=== PATIENT | female | born 1965 | race Caucasian/White ===

== ENCOUNTER → 2016-12-25 | Outpatient (CLI) | payer OTHER ==
[2015-11-19 03:55] VITALS: BP 134/84
--- NOTE | 2016-12-25 11:56 | US ---
HISTORY: Nausea and abdominal pain. Study: Right upper quadrant abdominal ultrasound Comparison: None. Technique: Multiple becerra scale and color flow Doppler images of the right upper quadrant were obtaine d. Findings: The liver is enlarged and homogeneously echogenic in appearance; please correlate with LFTs. No foca l intraparenchymal mass or intrahepatic biliary ductal dilatation can be observed. The gallbladder f ails to demonstrate evidence for cholelithiasis or layering sludge. The common bile duct is unremark able measuring 4 mm. No pericholecystic fluid or gallbladder wall thickening can be observed. The CB D measures within normal limits. The right kidney appears normal in size without focal parenchymal ma ss or nephrolithiasis. The right kidney measurers 7 x 8 x 5 centimeters. No hydronephrosis or perir enal fluid can be observed. The pancreatic head and body are unremarkable. The pancreatic tail is l argely obscured by overlying bowel gas. IMPRESSION: 1. Liver is enlarged and homogeneously echogenic in appearance which can be seen with fatty infiltra tion. Please correlate with liver function tests for assurance. 2. No other abdominal or gallbladder sonographic abnormalities are seen. Reported By:
== END | disposition home or self-care (01) | DRG 392 ==
LOC: RAD 09:36
PROVIDERS: ATTEND Internal Medicine
DX: R10.11 Right upper quadrant pain (principal); R11.0 Nausea; K76.0 Fatty (change of) liver, not elsewhere classified
CPT/HCPCS: 76705

== ENCOUNTER → 2017-01-01 | Outpatient (CLI) | payer OTHER ==
[2015-11-19 03:55] VITALS: BP 134/84
--- NOTE | 2017-01-01 12:19 | NM ---
Indication: Pain . Exam: Nuclear medicine hepatobiliary scan. Technique: The patient was injected with 5.4 mCi of Tc 9 M Choletec IV and dynamic and delayed images were obtained findings: There is physiologic uptake throughout the liver. No focal defects are seen. There is uptake in the gallbladder and small bowel within 60 min. The patient was then given 8 oz of the Ensure plus orally and a gallbladder ejection fraction was calculated at-126% in keeping with pa radoxical filling of the gallbladder. Impression: Normal liver and bile ducts with prompt normal visualization of the gallbladder. There is paradoxical filling of the gallbladder after the administration of Ensure orally which is suggestive of biliary dyskinesia. Reported By:
== END ==
LOC: RAD 09:10
PROVIDERS: ATTEND Internal Medicine
DX: R10.11 Right upper quadrant pain (principal); R11.0 Nausea
CPT/HCPCS: 78227

== ENCOUNTER → 2017-07-27 | Outpatient (CLI) | payer OTHER ==
[2015-11-19 03:55] VITALS: BP 134/84
[2017-07-27 14:32] LABS: STOOL FOR WBC NEGATIVE (NEGATIVE)
[2017-07-27 15:05] LABS: CRYPTOSPORIDIUM PARVUM ANTIGEN NEGATIVE (NEGATIVE); GIARDIA LAMBLIA ANTIGEN NEGATIVE (NEGATIVE)
== END ==
LOC: LAB 13:54
PROVIDERS: ATTEND Internal Medicine
DX: R19.7 Diarrhea, unspecified (principal)
CPT/HCPCS: 82274; 83630; 87045; 87328; 87329; 87336; 87427; 87449; 87493

== ENCOUNTER 2020-10-03 10:38 | Inpatient (IN) ==
[2020-10-03] MEDS ORDERED: NS 500 ML IV 500 ML IV ONE (12:51)
[2020-10-03] MEDS ORDERED: TYLENOL 325 MG TAB PO PRN (12:51)
[2020-10-03] MEDS ORDERED: BENADRYL INJ 50 MG VIAL IVP PRN (12:51)
[2020-10-03 13:25] LABS: BASOPHILS # (AUTO) 0.1 X10^3/uL (0.0-0.1); BASOPHILS % (AUTO) 1.2 % (0.2-1.0); EOSINOPHILS # (AUTO) 0.1 x10^3/uL (0.0-0.2); EOSINOPHILS % (AUTO) 0.7 % (0.9-2.9); LYMPHOCYTES % (AUTO) 12.6 % (21.0-51.0); MEAN CORPUSCULAR HEMOGLOBIN 16.6 pg (27.0-34.0); MEAN CORPUSCULAR HGB CONC 29.7 g/dL (33.0-35.0); MEAN CORPUSCULAR VOLUME 55.9 fL (80.0-100.0); MEAN PLATELET VOLUME 8.3 fL (7.4-11.0); MONOCYTES # (AUTO) 0.7 x10^3/uL (0.3-0.8); MONOCYTES % (AUTO) 7.9 % (0.0-13.0); NEUTROPHILS # (AUTO) 6.5 x10^3/uL (2.2-4.8); NEUTROPHILS % (AUTO) 77.6 % (42.0-75.0); PLATELET COUNT 245 X10^3/uL (150.0-450.0); RED BLOOD COUNT 3.45 X10^6/uL (3.5-5.4); RED CELL DISTRIBUTION WIDTH 20.9 % (11.6-16.5); WHITE BLOOD COUNT 8.4 X10^3/uL (3.6-10.0)
[2020-10-03 13:31] LABS: ALANINE AMINOTRANSFERASE 34 Units/L (12-78); ALBUMIN 3.4 g/dL (3.4-5.0); ALKALINE PHOSPHATASE 183 Units/L (46-116); ASPARTATE AMINO TRANSFERASE 45 Units/L (15-37); BLOOD UREA NITROGEN 21 mg/dL (7-18); CALCIUM 9.4 mg/dL (8.5-10.1); CARBON DIOXIDE 26.5 mmol/L (21-32); CHLORIDE 103 mmol/L (98-107); CREATININE 1.69 mg/dL (0.55-1.02); HEMATOCRIT 19.3 % (36.0-47.0); HEMOGLOBIN 5.7 g/dL (12.0-16.0); SODIUM 141 mmol/L (136-145); TOTAL PROTEIN 6.9 g/dL (6.4-8.2); eGFR NON BLACK RACES 33 (>60)
[2020-10-03 13:41] VITALS: BMI 34.9
[2020-10-03 13:43] LABS: PLATELET MORPHOLOGY COMMENT NORMAL (NORMAL)
[2020-10-03 13:44] LABS: ANISOCYTOSIS 1+; MICROCYTOSIS 2+; TEAR DROP CELLS SLIGHT
[2020-10-03 13:45] LABS: OVALOCYTES SLIGHT
[2020-10-03] MEDS: NS 1000 ML 1,000 ML IV SCH (13:45)
[2020-10-03] MEDS: PROTONIX INJ 40 MG VIAL IVP SCH ×2 (13:47→21:15)
[2020-10-03] MEDS: PEPCID 20 MG IV PREMIX* 20 MG/50 ML BAG IV SCH ×2 (13:47→21:20)
[2020-10-03] MEDS: NS 500 ML IV 500 ML IV PRN (14:32)
--- NOTE | 2020-10-03 19:39 | DR.CONSULT ---
Consult - Consultation for Day of: Date: 10/03/20 - Chief Complaint Chief Complaint: Patient referred for anemia. Patient with complaints of dyspepsia and nausea. - History of Present Illness History of Present Illness: Patient is a 54 yo female who was referred for anemia. Patient with complaints of dyspepsia, nausea and diarrhea. Patient unsure of melena or hematochezia as she does not look at her stools. Denies dysphagia, vomiting, abdominal pain, constipation. Last colon was within the last year with Dr. Echeverria with polyps was told will need repeat in 3 years. No previous EGD noted. Patient noted with history of fatty liver. Admits to drinking alcohol daily. Hgb 5.8, Hct 19.3, Plt 295, BUN 21, Creatinine 1.69, T. Bili 0.5 AST 45, ALT 35, ALP 183. - Past Medical History Past Medical History: Anxiety, Dyslipidemia, Hypertension, Hypothyroidism Additional Medical History: heart murmur - Past Surgical History Surgical History: Cholecystectomy, Hysterectomy - Family History Family Medical History: Diabetes Mellitus, MS, Coronary Artery Disease, Hypertension - Social History Does patient currently use any type of tobacco product: No Have you used tobacco products in the last 12 months: No Type of Tobacco Use: None Does any household member use tobacco: No Alcohol Use: DAILY Drug Use: None - Medications Home Medications: MS Sulfur [Sulfur] Allergy (Verified 11/18/15 16:30) CONTINUE taking the following medications amlodipine 5 mg PO BID 10/03/20 [History] brexpiprazole [Rexulti] 2 mg PO DAILY 10/03/20 [History] bupropion HCl 300 mg PO DAILY 10/03/20 [History] ergocalciferol (vitamin D2) [Vitamin D2] 1 mcg PO 2XW 10/03/20 [History] esomeprazole magnesium 40 mg PO BID 10/03/20 [History] hydrocodone-acetaminophen 1 tab PO TID PRN 10/03/20 [History] levothyroxine 75 mcg PO DAILY 10/03/20 [History] lurasidone [Latuda] 40 mg PO DAILY 10/03/20 [History] meloxicam 15 mg PO DAILY 10/03/20 [History] metoprolol tartrate 25 mg PO BID 10/03/20 [History] rosuvastatin 5 mg PO HS 06/17/21 [History] sertraline 100 mg PO DAILY 10/03/20 [History] temazepam 30 mg PO HS 10/03/20 [History] trazodone 150 mg PO HS 10/03/20 [History] triamterene-hydrochlorothiazid 1 tab PO DAILY 10/03/20 [History] - Review of Systems Gastrointestinal: See HPI, Nausea, Diarrhea, Other (dyspepsia). denies: Vomiting, Abdominal Pain, Constipation, Melena, Hematochezia - Physical Exam Vital Signs: Temperature 98.1 F Pulse Rate 68 Respiratory Rate 19 Blood Pressure [Right Arm] 134/84 Blood Pressure 113/57 O2 Sat by Pulse Oximetry 100 Oriented: Normal Eyes: Normal Ear: Normal Nose: Normal Throat: Normal Respiratory: Clear Throughout Cardiovascular: Normal Auscultation: Bowel Sounds: Normal Palpation: Normal, Other (no distention). negative: Spleen Enlarged, Liver Enlarged, Mass Pulsatile Tenderness: Normal (non tender) Skin: Normal Musculoskeletal: Normal Psychiatric: Normal Mood Description: Calm, Appropriate Affect: Normal Speech Pattern: Clear, Appropriate - Plan Plan: Assessment. 1. Anemia r/o GI loss. 2. Abnormal LFTs likely secondary to alcohol use r/o other etiologies. Plan. 1. Monitor Hgb, Transfuse as needed, EGD in am, Protonix IV. 2. Abnormal LFT Panel, Hepatitis Profile, Liver US, Monitor LFTs. Plan reviewed with Dr. Smith - Allergies Allergies/Adverse Reactions: Allergies Allergy/AdvReac Type Severity Reaction Status Date / Time MS Sulfur [Sulfur] Allergy Verified 11/18/15 16:30
[2020-10-03 20:47] LABS: IRON < 5 ug/dL (50-175)
[2020-10-03 23:55] LABS: HEMATOCRIT 22.7 % (36.0-47.0); HEMOGLOBIN 7.3 g/dL (12.0-16.0)
[2020-10-04 05:54] LABS: ALANINE AMINOTRANSFERASE 45 Units/L (12-78); ALKALINE PHOSPHATASE 215 Units/L (46-116); ASPARTATE AMINO TRANSFERASE 91 Units/L (15-37); BLOOD UREA NITROGEN 23 mg/dL (7-18); CALCIUM 8.8 mg/dL (8.5-10.1); CARBON DIOXIDE 22.4 mmol/L (21-32); CHLORIDE 105 mmol/L (98-107); COR CA(FOR HYPOALB) 9.6 mg/dL (8.5-10.1); CREATININE 1.66 mg/dL (0.55-1.02); SODIUM 142 mmol/L (136-145); TOTAL PROTEIN 6.2 g/dL (6.4-8.2); eGFR NON BLACK RACES 34 (>60)
[2020-10-04 06:00] LABS: BASOPHILS # (AUTO) 0.1 X10^3/uL (0.0-0.1); BASOPHILS % (AUTO) 1.3 % (0.2-1.0); EOSINOPHILS # (AUTO) 0.1 x10^3/uL (0.0-0.2); EOSINOPHILS % (AUTO) 1.2 % (0.9-2.9); HEMATOCRIT 22.6 % (36.0-47.0); HEMOGLOBIN 7.1 g/dL (12.0-16.0); LYMPHOCYTES # (AUTO) 1.3 X10^3/uL (1.3-2.9); MEAN CORPUSCULAR HEMOGLOBIN 19.6 pg (27.0-34.0); MEAN CORPUSCULAR HGB CONC 31.5 g/dL (33.0-35.0); MEAN CORPUSCULAR VOLUME 62.4 fL (80.0-100.0); MEAN PLATELET VOLUME 8.3 fL (7.4-11.0); MONOCYTES # (AUTO) 0.8 x10^3/uL (0.3-0.8); MONOCYTES % (AUTO) 8.7 % (0.0-13.0); NEUTROPHILS # (AUTO) 6.4 x10^3/uL (2.2-4.8); NEUTROPHILS % (AUTO) 73.8 % (42.0-75.0); PLATELET COUNT 214 X10^3/uL (150.0-450.0); RED BLOOD COUNT 3.62 X10^6/uL (3.5-5.4); RED CELL DISTRIBUTION WIDTH 29.8 % (11.6-16.5); WHITE BLOOD COUNT 8.7 X10^3/uL (3.6-10.0)
[2020-10-04] MEDS: NS 1000 ML 1,000 ML IV SCH ×2 (06:11→15:35)
[2020-10-04 07:00] LABS: ANISOCYTOSIS 3+; HYPOCHROMASIA 1+; PLATELET MORPHOLOGY COMMENT NORMAL (NORMAL)
[2020-10-04 07:01] LABS: MICROCYTOSIS 2+
[2020-10-04] MEDS: PEPCID 20 MG IV PREMIX* 20 MG/50 ML BAG IV SCH ×2 (08:03→21:15)
[2020-10-04] MEDS: PROTONIX INJ 40 MG VIAL IVP SCH (08:03)
--- NOTE | 2020-10-04 10:10 | US ---
[id number] female with elevated liver function testSTUDYLimited abdominal ultrasoundCOMPARISONNoneFINDINGSFatty changes are identified in the liver. However the liver is robert l size with no focal intrahepatic abnormality seen. Portal vein is patent with normal hepatopetal huber w.Patient is status post cholecystectomy. Common bile duct measures 7 millimeters in diameter.IMPRESS ION1. Fatty changes are identified in the liver.2. Status post cholecystectomy.Electronically signed by: JACEK RANDLE (Oct 04, 2020 10:08:31)
--- NOTE | 2020-10-04 13:18 | PCM.PROG ---
Progress Note Progress Note for Day of Date of Exam: 10/04/20 Subjective Subjective: Patient seen at bedside, no acute events overnight. Patient was seen by GI yesterday and is supposed to have EGD done today. She has been NPO since midnight. She denies any N/V/D or abdominal pain. She still reports generalized weakness. She was admitted with severe symptomatic anemia with Hgb 5.7. She has received 2 units of PRBCs so far. GI has ordered liver U/S and other tests including hepatitis panel. Labs: Hgb 7.1 Hct 22.6 K: 3.5 Cr: 1.66 MCV 62 Iron < 5 AST 91 Alk Phos 215 Hep panel pending Liver U/S pending MRI orbits/frontal: right maxillary sinus disease. Plan: keep NPO for now, EGD today, follow up on results and GI recommendation. Continue hydration and IV Protonix. Follow up on pending labs and U/S. Monitor H/H, repeat this afternoon. Replace iron. Replace electrolytes as per protocol. Monitor AM labs and imaging. Time spent for clinical assessment, reviewing labs and imaging, physical exam, decision making, management and documentation greater than 75 mins. Past Medical Family Social History Past Med/Fam/Surg Hx: No changes since H&P Allergies: Allergies Sulfa (Sulfonamide Antibiotics) Allergy (Verified 10/04/20 05:13) Review of Systems ROS: No change since H&P Vital Signs and I&O's Vital Signs: Temperature 98.4 F Pulse Rate 59 Respiratory Rate 14 Blood Pressure [Right Arm] 134/84 Blood Pressure 117/63 O2 Sat by Pulse Oximetry 100 Intake and Output: Intake & Output 10/01/20 10/02/20 10/03/20 10/04/20 23:59 23:59 23:59 23:59 Intake Total 1321 / 1321 1072 / 1072 Output Total 974 / 974 Balance 347 / 347 1072 / 1072 Physical Exam Oriented: Normal Eyes: Normal Ear: Normal Nose: Normal Throat: Normal Respiratory: Normal Cardiovascular: Normal Auscultation: Bowel Sounds: Normal Tenderness: Normal (non tender) Skin: Normal Musculoskeletal: Normal Psychiatric: Normal Mood Description: Calm and Appropriate Affect: Normal Speech Pattern: Clear and Appropriate Laboratory and Diagnostics Result Diagrams: 10/04/20 05:20 10/04/20 05:20 Labs: Laboratory WBC 8.7 X10^3/uL (3.6-10.0) 10/04/20 05:20 RBC 3.62 X10^6/uL (3.5-5.4) 10/04/20 05:20 Hgb 7.1 g/dL (12.0-16.0) L 10/04/20 05:20 Hct 22.6 % (36.0-47.0) L 10/04/20 05:20 MCV 62.4 fL (80.0-100.0) L 10/04/20 05:20 MCH 19.6 pg (27.0-34.0) L 10/04/20 05:20 MCHC 31.5 g/dL (33.0-35.0) L 10/04/20 05:20 RDW 29.8 % (11.6-16.5) H 10/04/20 05:20 Plt Count 214 X10^3/uL (150.0-450.0) 10/04/20 05:20 Plt Count Comment Adequate (ADEQUATE) 10/04/20 05:20 MPV 8.3 fL (7.4-11.0) 10/04/20 05:20 Neut % (Auto) 73.8 % (42.0-75.0) 10/04/20 05:20 Lymph % (Auto) 15.0 % (21.0-51.0) L 10/04/20 05:20 Powell % (Auto) 8.7 % (0.0-13.0) 10/04/20 05:20 Eos % (Auto) 1.2 % (0.9-2.9) 10/04/20 05:20 Baso % (Auto) 1.3 % (0.2-1.0) H 10/04/20 05:20 Neut # (Auto) 6.4 x10^3/uL (2.2-4.8) H 10/04/20 05:20 Lymph # (Auto) 1.3 X10^3/uL (1.3-2.9) 10/04/20 05:20 Powell # (Auto) 0.8 x10^3/uL (0.3-0.8) 10/04/20 05:20 Eos # (Auto) 0.1 x10^3/uL (0.0-0.2) 10/04/20 05:20 Baso # (Auto) 0.1 X10^3/uL (0.0-0.1) 10/04/20 05:20 Absolute Nucleated RBC 0.1 /100WBC 10/04/20 05:20 Plt Morphology Comment Normal (NORMAL) 10/04/20 05:20 RBC Morphology Abnormal (NORMAL) A 10/04/20 05:20 Hypochromasia 1+ A 10/04/20 05:20 Anisocytosis 3+ A 10/04/20 05:20 Microcytosis 2+ A 10/04/20 05:20 Tear Drop Cells Slight A 10/03/20 13:04 Ovalocytes Slight A 10/03/20 13:04 Sodium 142 mmol/L (136-145) 10/04/20 05:20 Corrected Sodium TNP 10/04/20 05:20 Potassium 3.5 mmol/L (3.5-5.1) 10/04/20 05:20 Chloride 105 mmol/L (98-107) 10/04/20 05:20 Carbon Dioxide 22.4 mmol/L (21-32) 10/04/20 05:20 BUN 23 mg/dL (7-18) H 10/04/20 05:20 Creatinine 1.66 mg/dL (0.55-1.02) H 10/04/20 05:20 Est GFR (MDRD) Af Amer 41 (>60) L 10/04/20 05:20 Est GFR (MDRD) Non-Af 34 (>60) L 10/04/20 05:20 Glucose 85 mg/dL (65-99) 10/04/20 05:20 Calcium 8.8 mg/dL (8.5-10.1) 10/04/20 05:20 Corrected Calcium 9.6 mg/dL (8.5-10.1) 10/04/20 05:20 Iron < 5 ug/dL (50-175) L 10/03/20 13:04 Transferrin 394 mg/dL (202-364) H 10/03/20 13:04 Ferritin 10 ng/mL (8-252) 10/03/20 13:04 Total Bilirubin 1.70 mg/dL (0.2-1.0) H 10/04/20 05:20 AST 91 Units/L (15-37) H 10/04/20 05:20 ALT 45 Units/L (12-78) 10/04/20 05:20 Alkaline Phosphatase 215 Units/L (46-116) H 10/04/20 05:20 Total Protein 6.2 g/dL (6.4-8.2) L 10/04/20 05:20 Albumin 3.0 g/dL (3.4-5.0) L 10/04/20 05:20 Globulin 3.2 g/dL (2.5-4.5) 10/04/20 05:20 Albumin/Globulin Ratio 0.9 Ratio (1.1-2.1) L 10/04/20 05:20 Stool Description 100g yellowish guevara 10/03/20 19:38 Stl Occult Blood (IFOB) Positive (NEGATIVE) A 10/03/20 19:38 Blood Type B POSITIVE 10/03/20 13:04 Antibody Screen Negative 10/03/20 13:04 Crossmatch See Detail 10/03/20 13:04 Plan (1) Symptomatic anemia: Status: Acute (2) DENEEN (iron deficiency anemia): Status: Acute Qualifiers: Iron deficiency anemia type: unspecified iron deficiency Qualified Code(s): D50.9 - Iron deficiency anemia, unspecified (3) GI bleed: Status: Acute Qualifiers: GI bleed type/associated pathology: melena Qualified Code(s): K92.1 - Melena (4) Transaminitis: Status: Acute (5) Acute kidney injury: Status: Acute (6) HTN (hypertension): Status: Acute Qualifiers: Hypertension type: essential hypertension Qualified Code(s): I10 - Essential (primary) hypertension (7) Hypothyroidism: Status: Acute Qualifiers: Hypothyroidism type: unspecified Qualified Code(s): E03.9 - Hypothyroidism, unspecified (8) HLD (hyperlipidemia): Status: Acute Qualifiers: Hyperlipidemia type: unspecified Qualified Code(s): E78.5 - Hyperlipidemia, unspecified
[2020-10-04] MEDS ORDERED: ZOLOFT PO ONE (13:30)
[2020-10-04] MEDS ORDERED: WELLBUTRIN XL 150 MG (DAILY) PO ONE (13:30)
[2020-10-04] MEDS ORDERED: DIPRIVAN VIAL 20 ML ONE (14:30)
[2020-10-04] MEDS ORDERED: XYLOCAINE 2 % (PLAIN) ONE (14:30)
[2020-10-04] MEDS ORDERED: ZOLOFT ONE (15:29)
[2020-10-04 17:31] LABS: HEMATOCRIT 23.7 % (36.0-47.0); HEMOGLOBIN 7.4 g/dL (12.0-16.0)
[2020-10-04] MEDS: FERROUS GLUCONATE PO SCH (17:39)
[2020-10-04] MEDS: NS 500 ML IV 500 ML IV PRN (17:39)
[2020-10-04] MEDS ORDERED: NORCO 10/325 TAB ONE (18:20)
[2020-10-04] MEDS ORDERED: ATIVAN INJ 2 MG VIAL IVP PRN (19:30)
[2020-10-04] MEDS ORDERED: PATIENT'S HOME MEDICATION PO SCH ×4 (21:00)
[2020-10-04] MEDS: PROTONIX TAB 40 MG PO SCH (21:15)
[2020-10-04] MEDS: PATIENT'S HOME MEDICATION PO SCH ×3 (21:15)
[2020-10-04] MEDS ORDERED: NORCO 10/325 TAB PO PRN (22:00)
[2020-10-05 01:53] LABS: BASOPHILS # (AUTO) 0.1 X10^3/uL (0.0-0.1); BASOPHILS % (AUTO) 1.5 % (0.2-1.0); EOSINOPHILS # (AUTO) 0.1 x10^3/uL (0.0-0.2); EOSINOPHILS % (AUTO) 1.6 % (0.9-2.9); HEMATOCRIT 27.8 % (36.0-47.0); HEMOGLOBIN 8.9 g/dL (12.0-16.0); LYMPHOCYTES # (AUTO) 1.5 X10^3/uL (1.3-2.9); LYMPHOCYTES % (AUTO) 19.4 % (21.0-51.0); MEAN CORPUSCULAR HGB CONC 31.9 g/dL (33.0-35.0); MEAN PLATELET VOLUME 8.4 fL (7.4-11.0); MONOCYTES # (AUTO) 0.8 x10^3/uL (0.3-0.8); MONOCYTES % (AUTO) 10.3 % (0.0-13.0); NEUTROPHILS # (AUTO) 5.2 x10^3/uL (2.2-4.8); NEUTROPHILS % (AUTO) 67.2 % (42.0-75.0); PLATELET COUNT 211 X10^3/uL (150.0-450.0); RED BLOOD COUNT 4.21 X10^6/uL (3.5-5.4); RED CELL DISTRIBUTION WIDTH 30.6 % (11.6-16.5); WHITE BLOOD COUNT 7.8 X10^3/uL (3.6-10.0)
[2020-10-05 02:06] LABS: ALANINE AMINOTRANSFERASE 37 Units/L (12-78); ALBUMIN 3.1 g/dL (3.4-5.0); ALKALINE PHOSPHATASE 220 Units/L (46-116); ASPARTATE AMINO TRANSFERASE 35 Units/L (15-37); BLOOD UREA NITROGEN 18 mg/dL (7-18); CALCIUM 8.7 mg/dL (8.5-10.1); CHLORIDE 107 mmol/L (98-107); COR CA(FOR HYPOALB) 9.4 mg/dL (8.5-10.1); CREATININE 1.61 mg/dL (0.55-1.02); SODIUM 144 mmol/L (136-145); eGFR NON BLACK RACES 35 (>60)
[2020-10-05 02:09] LABS: ANISOCYTOSIS 3+; HYPOCHROMASIA SLIGHT; MICROCYTOSIS 1+; OVALOCYTES PRESENT; PLATELET MORPHOLOGY COMMENT NORMAL (NORMAL)
[2020-10-05] MEDS: NS 1000 ML 1,000 ML IV SCH (05:17)
[2020-10-05] MEDS: FERROUS GLUCONATE PO SCH (08:40)
[2020-10-05] MEDS: PATIENT'S HOME MEDICATION PO SCH ×3 (08:41)
[2020-10-05] MEDS: PROTONIX TAB 40 MG PO SCH (08:42)
[2020-10-05] MEDS: PEPCID 20 MG IV PREMIX* 20 MG/50 ML BAG IV SCH (08:42)
[2020-10-05] MEDS ORDERED: PATIENT'S HOME MEDICATION PO SCH ×5 (09:00)
[2020-10-05] MEDS ORDERED: INFeD or DEXFERRUM 25 MG in NS 100 ML IV 100 ML IV ONE (11:00)
[2020-10-05] MEDS ORDERED: INFeD or DEXFERRUM 975 MG in NS 500 ML IV 500 ML IV ONE (11:00)
--- NOTE | 2020-10-05 11:43 | W.DIS.FURT ---
Summary of Discharge Discharge Summary of Date Date of Exam: 10/05/20 Admission Date Date of Admission: 10/03/20 Admission Diagnosis Hospital Course: Ms. Marr is a 54y/o female with a PMH of anemia, HTN, chronic ETOH use, anxiety, HLD, GERD and DENEEN presented with worsening nausea, abdominal pain and indigestion. On admission, she was found to be severely anemia with a Hgb of 5.8, BUN 21 and Creatinine 1.69, abnormal LFTs. She denies active bleeding. She was started on IV hydration, IV protonix. Patient also received a total of 4 units of PRBCs during this admission She had colonoscopy last year with Dr. Echeverria with polyps and recommended repeat in 3 years. No EGD noted. GI was consulted and ordered more tests to rule out cause of anemia along with hepatitis panel and Liver U/S. EGD was done which showed Distal esophagitis. M ultiple small non-bleeding antral gastric nodules with tiny ulcerations on top. Patient's Hgb remained stable above 8. Patient's iron was below 5 and she received one iron infusion prior to discharge. She was also started on oral iron supplements for outpatient. GI recommended Protonix 40 mg BID and will follow up outpatient to follow up on pending labs and other work up for anemia including capsule endoscopy and repeat colonoscopy. Patient will follow up with GI and PCP as scheduled. Vital Signs: Vital Signs (72 hours) 10/03/20 13:00 10/03/20 14:00 10/03/20 14:33 Temperature 98.2 F Pulse Rate 74 64 Respiratory Rate 18 19 18 Blood Pressure 109/64 108/55 O2 Sat by Pulse Oximetry 97 98 10/03/20 15:00 10/03/20 15:33 10/03/20 16:00 Temperature 98.1 F Pulse Rate 62 68 Respiratory Rate 18 19 19 Blood Pressure 99/60 113/57 O2 Sat by Pulse Oximetry 94 L 100 10/03/20 20:00 10/04/20 00:00 10/04/20 00:02 Temperature 98.2 F Pulse Rate 65 60 59 L Respiratory Rate 17 15 17 Blood Pressure 121/56 108/56 O2 Sat by Pulse Oximetry 98 99 96 10/04/20 00:15 10/04/20 00:30 10/04/20 00:45 Temperature Pulse Rate 60 62 62 Respiratory Rate 16 17 17 Blood Pressure O2 Sat by Pulse Oximetry 94 L 97 97 10/04/20 01:00 10/04/20 01:15 10/04/20 01:30 Temperature Pulse Rate 60 61 61 Respiratory Rate 15 16 17 Blood Pressure 100/54 O2 Sat by Pulse Oximetry 97 97 97 10/04/20 01:45 10/04/20 01:59 10/04/20 02:00 Temperature Pulse Rate 61 61 Respiratory Rate 18 17 Blood Pressure 97/54 O2 Sat by Pulse Oximetry 97 95 10/04/20 02:02 10/04/20 02:16 10/04/20 02:30 Temperature Pulse Rate 61 60 59 L Respiratory Rate 16 18 17 Blood Pressure O2 Sat by Pulse Oximetry 95 95 96 10/04/20 02:45 10/04/20 03:00 10/04/20 03:15 Temperature Pulse Rate 59 L 59 L 58 L Respiratory Rate 16 11 L 16 Blood Pressure 107/61 O2 Sat by Pulse Oximetry 95 96 97 10/04/20 03:30 10/04/20 03:45 10/04/20 04:00 Temperature 97.8 F Pulse Rate 59 L 59 L 58 L Respiratory Rate 16 16 12 Blood Pressure 109/56 O2 Sat by Pulse Oximetry 97 96 96 10/04/20 04:15 10/04/20 04:30 10/04/20 04:45 Temperature Pulse Rate 57 L 62 58 L Respiratory Rate 13 17 15 Blood Pressure O2 Sat by Pulse Oximetry 98 97 96 10/04/20 05:00 10/04/20 05:15 10/04/20 05:31 Temperature Pulse Rate 58 L 59 L 72 Respiratory Rate 11 L 13 Blood Pressure 110/59 O2 Sat by Pulse Oximetry 97 96 96 10/04/20 05:45 10/04/20 06:00 10/04/20 06:15 Temperature 97.8 F Pulse Rate 78 128 H 62 Respiratory Rate 18 27 H Blood Pressure 105/59 O2 Sat by Pulse Oximetry 98 96 99 10/04/20 06:30 10/04/20 06:45 10/04/20 07:00 Temperature Pulse Rate 61 61 60 Respiratory Rate 14 17 15 Blood Pressure 98/60 O2 Sat by Pulse Oximetry 99 98 95 10/04/20 07:15 10/04/20 07:30 10/04/20 07:45 Temperature Pulse Rate 60 62 75 Respiratory Rate 15 15 32 H Blood Pressure O2 Sat by Pulse Oximetry 95 94 L 96 10/04/20 08:00 10/04/20 08:15 10/04/20 08:30 Temperature 98.4 F Pulse Rate 59 L 64 63 Respiratory Rate 14 19 18 Blood Pressure 117/63 O2 Sat by Pulse Oximetry 100 99 97 10/04/20 08:45 10/04/20 09:00 10/04/20 09:15 Temperature Pulse Rate 64 65 65 Respiratory Rate 16 21 13 Blood Pressure O2 Sat by Pulse Oximetry 98 98 98 10/04/20 09:30 10/04/20 09:46 10/04/20 10:00 Temperature Pulse Rate 67 72 Respiratory Rate 19 Blood Pressure 121/62 O2 Sat by Pulse Oximetry 98 98 10/04/20 10:15 10/04/20 10:30 10/04/20 10:45 Temperature Pulse Rate 67 62 62 Respiratory Rate 22 19 20 Blood Pressure O2 Sat by Pulse Oximetry 98 93 L 97 10/04/20 11:00 10/04/20 11:15 10/04/20 11:30 Temperature Pulse Rate 73 61 64 Respiratory Rate 29 H 17 25 H Blood Pressure O2 Sat by Pulse Oximetry 94 L 98 99 10/04/20 11:45 10/04/20 12:00 10/04/20 12:01 Temperature 98.6 F Pulse Rate 68 75 71 Respiratory Rate 22 17 20 Blood Pressure 101/55 O2 Sat by Pulse Oximetry 98 95 95 10/04/20 12:15 10/04/20 12:30 10/04/20 12:45 Temperature Pulse Rate 64 64 64 Respiratory Rate 19 17 18 Blood Pressure O2 Sat by Pulse Oximetry 94 L 93 L 97 10/04/20 13:00 10/04/20 13:15 10/04/20 13:30 Temperature Pulse Rate 65 65 78 Respiratory Rate 21 16 18 Blood Pressure O2 Sat by Pulse Oximetry 94 L 96 93 L 10/04/20 13:45 10/04/20 14:00 10/04/20 14:15 Temperature Pulse Rate 62 65 69 Respiratory Rate 18 15 18 Blood Pressure 124/60 O2 Sat by Pulse Oximetry 95 99 98 10/04/20 14:56 10/04/20 15:00 10/04/20 15:15 Temperature Pulse Rate 87 64 67 Respiratory Rate Blood Pressure O2 Sat by Pulse Oximetry 93 L 97 95 10/04/20 15:20 10/04/20 15:31 10/04/20 15:45 Temperature Pulse Rate 67 65 61 Respiratory Rate 15 14 Blood Pressure 114/60 O2 Sat by Pulse Oximetry 98 99 99 10/04/20 16:00 10/04/20 16:15 10/04/20 16:30 Temperature Pulse Rate 76 75 68 Respiratory Rate 22 14 21 Blood Pressure 120/63 O2 Sat by Pulse Oximetry 97 97 97 10/04/20 18:16 10/04/20 19:16 10/04/20 20:00 Temperature 98.0 F Pulse Rate 65 Respiratory Rate 18 18 17 Blood Pressure 109/55 O2 Sat by Pulse Oximetry 96 10/05/20 00:00 10/05/20 04:00 10/05/20 07:53 Temperature 98.3 F 97.9 F 98.2 F Pulse Rate 61 58 L 62 Respiratory Rate 17 13 13 Blood Pressure 99/54 100/57 107/71 O2 Sat by Pulse Oximetry 96 94 L 100 Labs: Laboratory Last Values WBC 7.8 X10^3/uL (3.6-10.0) 10/05/20 01:40 RBC 4.21 X10^6/uL (3.5-5.4) 10/05/20 01:40 Hgb 8.9 g/dL (12.0-16.0) L 10/05/20 01:40 Hct 27.8 % (36.0-47.0) L 10/05/20 01:40 MCV 66.0 fL (80.0-100.0) L 10/05/20 01:40 MCH 21.0 pg (27.0-34.0) L 10/05/20 01:40 MCHC 31.9 g/dL (33.0-35.0) L 10/05/20 01:40 RDW 30.6 % (11.6-16.5) H 10/05/20 01:40 Plt Count 211 X10^3/uL (150.0-450.0) 10/05/20 01:40 Plt Count Comment Adequate (ADEQUATE) 10/05/20 01:40 MPV 8.4 fL (7.4-11.0) 10/05/20 01:40 Neut % (Auto) 67.2 % (42.0-75.0) 10/05/20 01:40 Lymph % (Auto) 19.4 % (21.0-51.0) L 10/05/20 01:40 [place] % (Auto) 10.3 % (0.0-13.0) 10/05/20 01:40 Eos % (Auto) 1.6 % (0.9-2.9) 10/05/20 01:40 Baso % (Auto) 1.5 % (0.2-1.0) H 10/05/20 01:40 Neut # (Auto) 5.2 x10^3/uL (2.2-4.8) H 10/05/20 01:40 Lymph # (Auto) 1.5 X10^3/uL (1.3-2.9) 10/05/20 01:40 [place] # (Auto) 0.8 x10^3/uL (0.3-0.8) 10/05/20 01:40 Eos # (Auto) 0.1 x10^3/uL (0.0-0.2) 10/05/20 01:40 Baso # (Auto) 0.1 X10^3/uL (0.0-0.1) 10/05/20 01:40 Absolute Nucleated RBC 0.1 /100WBC 10/05/20 01:40 Plt Morphology Comment Normal (NORMAL) 10/05/20 01:40 RBC Morphology Abnormal (NORMAL) A 10/05/20 01:40 Dimorphic RBCs Present 10/05/20 01:40 Hypochromasia Slight A 10/05/20 01:40 Anisocytosis 3+ A 10/05/20 01:40 Microcytosis 1+ A 10/05/20 01:40 Tear Drop Cells Slight A 10/03/20 13:04 Ovalocytes Present 10/05/20 01:40 Sodium 144 mmol/L (136-145) 10/05/20 01:40 Corrected Sodium TNP 10/05/20 01:40 Potassium 3.5 mmol/L (3.5-5.1) 10/05/20 01:40 Chloride 107 mmol/L (98-107) 10/05/20 01:40 Carbon Dioxide 23.0 mmol/L (21-32) 10/05/20 01:40 BUN 18 mg/dL (7-18) 10/05/20 01:40 Creatinine 1.61 mg/dL (0.55-1.02) H 10/05/20 01:40 Est GFR (MDRD) Af Amer 43 (>60) L 10/05/20 01:40 Est GFR (MDRD) Non-Af 35 (>60) L 10/05/20 01:40 Glucose 92 mg/dL (65-99) 10/05/20 01:40 Calcium 8.7 mg/dL (8.5-10.1) 10/05/20 01:40 Corrected Calcium 9.4 mg/dL (8.5-10.1) 10/05/20 01:40 Iron < 5 ug/dL (50-175) L 10/03/20 13:04 Transferrin 394 mg/dL (202-364) H 10/03/20 13:04 Ferritin 10 ng/mL (8-252) 10/03/20 13:04 Total Bilirubin 0.40 mg/dL (0.2-1.0) 10/05/20 01:40 AST 35 Units/L (15-37) 10/05/20 01:40 ALT 37 Units/L (12-78) 10/05/20 01:40 Alkaline Phosphatase 220 Units/L (46-116) H 10/05/20 01:40 Total Protein 6.0 g/dL (6.4-8.2) L 10/05/20 01:40 Albumin 3.1 g/dL (3.4-5.0) L 10/05/20 01:40 Globulin 2.9 g/dL (2.5-4.5) 10/05/20 01:40 Albumin/Globulin Ratio 1.1 Ratio (1.1-2.1) 10/05/20 01:40 Stool Description 100g yellowish guevara 10/03/20 19:38 Stl Occult Blood (IFOB) Positive (NEGATIVE) A 10/03/20 19:38 Tissue Pathology To follow 10/04/20 14:43 Blood Type B POSITIVE 10/03/20 13:04 Antibody Screen Negative 10/03/20 13:04 Crossmatch See Detail 10/03/20 13:04 Reason For Visit: ANEMIA Discharge Date Discharge Date: 10/05/20 Discharge Diagnosis All Active Problems (Updated 10/09/20 @ 16:14 by Gris Arellano) H/O ETOH abuse (Acute) Esophagitis (Acute) HLD (hyperlipidemia) (Acute) Hypothyroidism (Acute) HTN (hypertension) (Acute) Acute kidney injury (Acute) Transaminitis (Acute) GI bleed (Acute) Symptomatic anemia (Acute) DENEEN (iron deficiency anemia) (Acute) Anemia (Acute) Depression (Chronic) Plan of Treatment: Continue with present treatment and follow up plan. Pt is to keep follow up appointment as instructed and take medications as ordered. Discharge Medications Discharge Medications: Sulfa (Sulfonamide Antibiotics) Allergy (Verified 10/04/20 05:13) CONTINUE taking the following medications amlodipine 5 mg PO BID 10/03/20 [History] brexpiprazole [Rexulti] 2 mg PO DAILY 10/03/20 [History] bupropion HCl 300 mg PO DAILY 10/03/20 [History] ergocalciferol (vitamin D2) [Vitamin D2] 1 mcg PO 2XW 10/03/20 [History] esomeprazole magnesium 40 mg PO BID 10/03/20 [History] hydrocodone-acetaminophen 1 tab PO TID PRN 10/03/20 [History] levothyroxine 75 mcg PO DAILY 10/03/20 [History] lurasidone [Latuda] 40 mg PO DAILY 10/03/20 [History] meloxicam 15 mg PO DAILY 10/03/20 [History] metoprolol tartrate 25 mg PO BID 10/03/20 [History] rosuvastatin 5 mg PO HS 10/03/20 [History] sertraline 100 mg PO DAILY 10/03/20 [History] temazepam 30 mg PO HS 10/03/20 [History] trazodone 150 mg PO HS 10/03/20 [History] triamterene-hydrochlorothiazid 1 tab PO DAILY 10/03/20 [History] New Prescriptions famotidine 20 mg PO BID 30 Days #60 tab 10/05/20 [Rx] ferrous gluconate 324 mg PO BIDWM 30 Days #60 tab 10/05/20 [Rx] pantoprazole 40 mg PO BID 30 Days #60 tab 10/05/20 [Rx] Follow up and Referral Follow Up: 1 Week Discharge Disposition Discharge Disposition: Home Discharge Condition: Stable Discharge Plan Discharge Plan Hospital Course: Ms. Marr is a 54y/o female with a PMH of anemia, HTN, chronic ETOH use, anxiety, HLD, GERD and DENEEN presented with worsening nausea, abdominal pain and indigestion. On admission, she was found to be severely anemia with a Hgb of 5.8, BUN 21 and Creatinine 1.69, abnormal LFTs. She denies active bleeding. She was started on IV hydration, IV protonix. Patient also received a total of 4 units of PRBCs during this admission She had colonoscopy last year with Dr. Echeverria with polyps and recommended repeat in 3 years. No EGD noted. GI was consulted and ordered more tests to rule out cause of anemia along with hepatitis panel and Liver U/S. EGD was done which showed Distal esophagitis. Multiple small non-bleeding antral gastric nodules with tiny ulcerations on top. Patient's Hgb remained stable above 8. Patient's iron was below 5 and she received one iron infusion prior to discharge. She was also started on oral iron supplements for outpatient. GI recommended Protonix 40 mg BID and will follow up outpatient to follow up on pending labs and other work up for anemia including capsule endoscopy and repeat colonoscopy. Patient will follow up with GI and PCP as scheduled. Patient Disposition: 01 HOME, SELF-CARE Condition: Stable Health Concerns: Post Hospitalization: new medications and changes needed to prevent readmission or further decline. Pt educated and given instructions on all concerns. Plan of Treatment: Continue with present treatment and follow up plan. Pt is to keep follow up appointment as instructed and take medications as ordered. Prescription drug monitoring program results: PDMP reviewed and no concerns identified Prescriptions: New pantoprazole 40 mg Tablet,Delayed Release (Dr/Ec) 40 mg PO BID 30 Days Qty: 60 RF: 0 ferrous gluconate 324 mg (38 mg iron) Tablet 324 mg PO BIDWM 30 Days Qty: 60 RF: 1 famotidine 20 mg tablet 20 mg PO BID 30 Days Qty: 60 RF: 1 Continued sertraline 100 mg tablet 100 mg PO DAILY RF: 0 amlodipine 5 mg Tablet 5 mg PO BID RF: 0 hydrocodone-acetaminophen 10-325 mg Tablet 1 tab PO TID PRN (Reason: Pain, Moderate) RF: 0 levothyroxine 75 mcg tablet 75 mcg PO DAILY RF: 0 temazepam 30 mg capsule 30 mg PO HS RF: 0 trazodone 150 mg tablet 150 mg PO HS RF: 0 triamterene-hydrochlorothiazid 75-50 mg tablet 1 tab PO DAILY RF: 0 ergocalciferol (vitamin D2) [Vitamin D2] 1,250 mcg (50,000 unit) capsule 1 mcg PO 2XW RF: 0 rosuvastatin 5 mg tablet 5 mg PO HS RF: 0 bupropion HCl 300 mg tablet extended release 24 hr 300 mg PO DAILY RF: 0 metoprolol tartrate 25 mg tablet 25 mg PO BID RF: 0 Latuda 40 mg tablet 40 mg PO DAILY RF: 0 Rexulti 2 mg tablet 2 mg PO DAILY RF: 0 Discontinued meloxicam 15 mg tablet 15 mg PO DAILY RF: 0 esomeprazole magnesium 40 mg Capsule,Delayed Release(Dr/Ec) 40 mg PO BID RF: 0 Follow ups/Referrals Follow ups/Referrals: Trevin Kong [Primary Care Provider] - 1 WEEK BRENDA VENTURA [STAFF PHYSICIAN] - 1 WEEK Instructions Activity Restrictions/Additional Instructions: Do not take NSAIDs including meloxicam, naproxen, ibuprofen or goody powder Needs CBC at one week visit to monitor hemoglobin Stand Alone Forms: Excuse From Work or School, Precautions for COVID19, Patient Portal, Social Distancing
[2020-10-05 12:04] VITALS: BP 123/63
[2020-10-07 06:32] LABS: HEPATITIS B SURFACE ANTIGEN Negative (Negative)
[2020-10-07 06:37] LABS: ANTI-NUCLEAR ANTIBODY TEST None Detected (None Detected)
== END 2020-10-05 15:35 | disposition home or self-care (01) | DRG 812 ==
LOC: ICU 11:45
PROVIDERS: ADMIT Internal Medicine; ATTEND Internal Medicine
DX: E03.8 Other specified hypothyroidism; R10.13 Epigastric pain; K25.3 Acute gastric ulcer without hemorrhage or perforation; K21.00 Gastro-esophageal reflux disease with esophagitis, without bleeding; N17.8 Other acute kidney failure; I10 Essential (primary) hypertension; R74.01 Elevation of levels of liver transaminase levels; K92.1 Melena; R79.89 Other specified abnormal findings of blood chemistry; E78.5 Hyperlipidemia, unspecified; D50.8 Other iron deficiency anemias

== ENCOUNTER 2023-08-27 10:37 | Inpatient (IN) ==
[2023-08-27 11:12] VITALS: BMI 34.2
--- NOTE | 2023-08-27 11:22 | DR.EXTPAIN ---
HPI Time seen Time Seen by Provider: 08/27/23 11:11 Complaint/Symptoms Chief Complaint Doctor Comments: Cording to the daughters and the patient she failed last night after she had like 2 or 3 drinks and got dizzy and she fell onto the floor according to her she injured her chin and she now complaining of also some left flank pain. According to the daughter she also has a history of anemia and she sometimes gets weak and dizzy when her blood count is too low. PMH PMH Past Medical History: Anxiety, Dyslipidemia, Hypertension and Hypothyroidism Past Surgical History: Yes Surgical History: Cholecystectomy and Hysterectomy Family History Family Medical History: Diabetes Mellitus, [place], Coronary Artery Disease and Hypertension Social History Do you use any recreational Drugs:: No ROS Review of Systems Constitutional: Other (Dizziness and then fall.) Eyes: No Symptoms Reported ENTM: Mouth Pain (IN CHIN AREA) Respiratoy: No Symptoms Reported Cardiovascular: No Symptoms Reported Gastrointestinal/Abdominal: No Symptoms Reported Genitourinary: No Symptoms Reported Neurological: Weakness Musculoskeletal: Other (chin pain) Integumentary: No Symptoms Reported Hematologic/Lymphatic: No Symptoms Reported Endocrine: No Symptoms Reported Psychiatric: No Symptoms Reported PE Vital Signs Vitals: Vital Signs Temperature 97.7 F Pulse Rate 98 Respiratory Rate 20 Respiratory Rate 16 Blood Pressure 119/61 O2 Sat by Pulse Oximetry 99 General Limitations: No Limitations General Appearance: Alert and In No Apparent Distress Head Head Exam: Other (laceration on chin) Eyes Eye exam: Normal Appearance, PERRL and EOMI ENT ENT Exam: Normal Exam Neck Neck Exam: Normal Inspection and Full ROM Chest Chest Inspection: Normal Inspection Respiratory Respiratory Exam: Normal Lung Sounds Bilat Respiratory Exam: Bilateral: Clear to Auscultation Cardiovascular Cardiovascular Exam: Regular Rate and Normal Rhythm Abdominal Exam Abdominal Exam: Normal Inspection Extremities Extremities Exam: Normal Inspection Upper Extremities Shoulder Exam: Normal Inspection Arm Exam: Normal Inspection Elbow Exam: Normal Inspection Forearm Exam: Normal Inspection Hand Exam: Normal Inspection Neuromotor Exam: Normal Exam Lower Extremities Hip/Pelvis Exam: Normal Inspection Upper Leg Exam: Normal Inspection Knee Exam: Normal Inspection Lower Leg Exam: Normal Inspection Ankle Exam: Normal Inspection Foot/Toe Exam: Normal Inspection Back Back Exam: Normal Inspection Neurological Neurological Exam: Alert and Oriented X3 Psychiatric Psychiatric Exam: Normal Affect Skin Skin Exam: Warm and Dry Type of Lesion: Laceration (on chin) MDM Differential Diagnosis Differential Diagnosis: Contusion (chin left flank), Fracture (chin,left ribs), Laceration (chin) and Other (anemia,alcoholism) COURSE Treatment Treatment: This patient remained relatively stable during the ER evaluation. We did do a CT scan of her chest that showed left sixth and seventh rib fractures and right second to 6 rib fractures. There was also multilevel degenerative joint disease in the spine. The patient also had labs drawn and she had a hemoglobin of 6.7 hematocrit of 23.3. This patient does have a history of anemia she had to be transfused about a year ago for low hemoglobin. She is supposed to be on iron which she states she is not compliant in taking it. I spoke to Dr. Marquez at 1345 and he stated we can go ahead and put in transfused 2 units of packed red blood cells. We spoke to the utilization review and they said she was to be referred to observation . [facility] Labs Reviewed Laboratory Results Reviewed?: Yes 08/27/23 11:24 08/27/23 11:30 Laboratory: WBC 7.7 X10^3/uL (3.6-10.0) 08/27/23 11:24 RBC 4.06 X10^6/uL (3.5-5.4) 08/27/23 11:24 Hgb 6.7 g/dL (12.0-16.0) L* 08/27/23 11:24 Hct 23.3 % (36.0-47.0) L 08/27/23 11:24 MCV 57.5 fL (80.0-100.0) L 08/27/23 11:24 MCH 16.4 pg (27.0-34.0) L 08/27/23 11:24 MCHC 28.6 g/dL (33.0-35.0) L 08/27/23 11:24 RDW 21.1 % (11.6-16.5) H 08/27/23 11:24 Plt Count 221 X10^3/uL (150.0-450.0) 08/27/23 11:24 Plt Count Comment Adequate (ADEQUATE) 08/27/23 11:24 MPV 8.3 fL (7.4-11.0) 08/27/23 11:24 Neut % (Auto) 76.2 % (42.0-75.0) H 08/27/23 11:24 Lymph % (Auto) 13.2 % (21.0-51.0) L 08/27/23 11:24 [place] % (Auto) 9.3 % (0.0-13.0) 08/27/23 11:24 Eos % (Auto) 0.6 % (0.9-2.9) L 08/27/23 11:24 Baso % (Auto) 0.7 % (0.2-1.0) 08/27/23 11:24 Neut # (Auto) 5.8 x10^3/uL (2.2-4.8) H 08/27/23 11:24 Lymph # (Auto) 1.0 X10^3/uL (1.3-2.9) L 08/27/23 11:24 [place] # (Auto) 0.7 x10^3/uL (0.3-0.8) 08/27/23 11:24 Eos # (Auto) 0.0 x10^3/uL (0.0-0.2) 08/27/23 11:24 Baso # (Auto) 0.1 X10^3/uL (0.0-0.1) 08/27/23 11:24 Absolute Nucleated RBC 0.3 /100WBC 08/27/23 11:24 Plt Morphology Comment Normal (NORMAL) 08/27/23 11: RBC Morphology Abnormal (NORMAL) A 08/27/23 11:24 Anisocytosis 1+ A 08/27/23 11:24 Microcytosis 3+ A 08/27/23 11:24 Ovalocytes Slight A 08/27/23 11:24 Sodium 139 mmol/L (136-145) 08/27/23 11:30 Corrected Sodium TNP 08/27/23 11:30 Potassium 3.7 mmol/L (3.5-5.1) 08/27/23 11:30 Chloride 103 mmol/L (98-107) 08/27/23 11:30 Carbon Dioxide 25.3 mmol/L (21-32) 08/27/23 11:30 BUN 17 mg/dL (7-18) 08/27/23 11:30 Creatinine 1.48 mg/dL (0.55-1.02) H 08/27/23 11:30 Est GFR (MDRD) Af Amer 47 (>60) L 08/27/23 11:30 Est GFR (MDRD) Non-Af 39 (>60) L 08/27/23 11:30 Glucose 98 mg/dL (65-99) 08/27/23 11:30 Calcium 9.2 mg/dL (8.5-10.1) 08/27/23 11:30 Corrected Calcium 9.9 mg/dL (8.5-10.1) 08/27/23 11:30 Total Bilirubin 0.60 mg/dL (0.2-1.0) 08/27/23 11:30 AST 30 Units/L (15-37) 08/27/23 11:30 ALT 29 Units/L (12-78) 08/27/23 11:30 Alkaline Phosphatase 111 Units/L (46-116) 08/27/23 11:30 Total Protein 7.4 g/dL (6.4-8.2) 08/27/23 11:30 Albumin 3.1 g/dL (3.4-5.0) L 08/27/23 11:30 Globulin 4.3 g/dL (2.5-4.5) 08/27/23 11:30 Albumin/Globulin Ratio 0.7 Ratio (1.1-2.1) L 08/27/23 11:30 Ethyl Alcohol mg/dL 0 mg/dL (0-19.9) 08/27/23 11:30 Opioid Opioid Risk Tool Age (Karson box if 16-45): No History of Preadolescent Sexual Abuse: No Total: 0 Total Score Risk Category: Low Risk Copyright: Iglesia BRUNO predicting aberrant behaviors Discharge Plan Diagnosis Discharge Problem: Anemia, Ribs, multiple fractures Discharge Plan Patient Disposition: 09 ADMITTED INPATIENT Condition: Stable Orders to Discharge Patient Discharge Orders: Transfer (Routine); Ordered 08/27/23 Ordered By: Oni Franco
[2023-08-27 11:41] LABS: MEAN CORPUSCULAR HEMOGLOBIN 16.4 pg (27.0-34.0); MEAN CORPUSCULAR VOLUME 57.5 fL (80.0-100.0); NEUTROPHILS # (AUTO) 5.8 x10^3/uL (2.2-4.8)
[2023-08-27 11:48] LABS: BASOPHILS # (AUTO) 0.1 X10^3/uL (0.0-0.1); BASOPHILS % (AUTO) 0.7 % (0.2-1.0); EOSINOPHILS % (AUTO) 0.6 % (0.9-2.9); HEMATOCRIT 23.3 % (36.0-47.0); LYMPHOCYTES % (AUTO) 13.2 % (21.0-51.0); MEAN CORPUSCULAR HGB CONC 28.6 g/dL (33.0-35.0); MEAN PLATELET VOLUME 8.3 fL (7.4-11.0); MONOCYTES # (AUTO) 0.7 x10^3/uL (0.3-0.8); MONOCYTES % (AUTO) 9.3 % (0.0-13.0); NEUTROPHILS % (AUTO) 76.2 % (42.0-75.0); PLATELET COUNT 221 X10^3/uL (150.0-450.0); RED BLOOD COUNT 4.06 X10^6/uL (3.5-5.4); RED CELL DISTRIBUTION WIDTH 21.1 % (11.6-16.5); WHITE BLOOD COUNT 7.7 X10^3/uL (3.6-10.0)
[2023-08-27 11:49] LABS: HEMOGLOBIN 6.7 g/dL (12.0-16.0)
[2023-08-27 11:50] LABS: ALANINE AMINOTRANSFERASE 29 Units/L (12-78); ALBUMIN 3.1 g/dL (3.4-5.0); ALKALINE PHOSPHATASE 111 Units/L (46-116); ASPARTATE AMINO TRANSFERASE 30 Units/L (15-37); BLOOD ALCOHOL 0 mg/dL (0-19.9); BLOOD UREA NITROGEN 17 mg/dL (7-18); CALCIUM 9.2 mg/dL (8.5-10.1); CARBON DIOXIDE 25.3 mmol/L (21-32); CHLORIDE 103 mmol/L (98-107); COR CA(FOR HYPOALB) 9.9 mg/dL (8.5-10.1); CREATININE 1.48 mg/dL (0.55-1.02); GLUCOSE 98 mg/dL (65-99); POTASSIUM 3.7 mmol/L (3.5-5.1); SODIUM 139 mmol/L (136-145); TOTAL PROTEIN 7.4 g/dL (6.4-8.2); eGFR NON BLACK RACES 39 (>60)
--- NOTE | 2023-08-27 11:59 | CT ---
EXAM:CERVICAL SPINE W/O CONHISTORY:FALL, CHIN LACERATION, NECK PAIN;COMPARISON:None available.TECHNIQUE:Multiple axial images of the cervical spine were obtained from the skull base to the thoracic inlet without administration of IV contrast. Sagittal and coronal reformats were performed and reviewed. Dose reduction techniques including Automated Exposure Control (AEC) and adjustment of mA and kV were utilized.FINDINGS:Alignment of the cervical spine is maintained. No evidence for acute cortical disruption or subluxation can be seen. The central canal remains free of compromise from bony fragments or significant soft tissue encroachment. The posterior elements appear unremarkable. The prevertebral soft tissues are normal in their appearance. In addition, the surrounding paraspinous soft tissues are unremarkable. Moderate degenerative changes of the cervical spine are incidentally noted.IMPRESSION:No evidence for traumatic injury of the cervical spine.THIS IS AN ELECTRONICALLY VERIFIED FINAL REPORT08/27/2023 11:55 AM - Electronically signed by Jesús Ibarra MD
[2023-08-27 12:07] LABS: ANISOCYTOSIS 1+; MICROCYTOSIS 3+; PLATELET MORPHOLOGY COMMENT NORMAL (NORMAL)
[2023-08-27 12:08] LABS: OVALOCYTES SLIGHT
--- NOTE | 2023-08-27 12:08 | CT ---
EXAM:FACIAL W/O CONHISTORY:FALL, CHIN LACERATION;COMPARISON:None available.TECHNIQUE:Multiple axial images of the facial structures were obtained from the mandible to superior portions of the orbits. Dose reduction techniques including Automated Exposure Control (AEC) and adjustment of mA and kV were utilized.FINDINGS:The visualized paranasal sinuses appear unremarkable without significant mucosal thickening or air-fluid levels. The mandible as well as the surrounding bony structures appear unremarkable. The visualized portions of the orbits as well as the globe within the right and left orbit are unremarkable in their CT appearance.IMPRESSION:Negative examTHIS IS AN ELECTRONICALLY VERIFIED FINAL REPORT08/27/2023 12:05 PM - Electronically signed by Jesús Ibarra MD
--- NOTE | 2023-08-27 12:30 | CT ---
EXAM:CHEST W/O CONHISTORY:FALL, UPPER BILATERAL RIB PAIN;COMPARISON:None.TECHNIQUE:CT of the chest obtained without IV contrast. Evaluation of the solid organs is limited due to lack of IV contrast. 3D MIPS images obtained and reviewed. Dose reduction techniques including Automated Exposure Control (AEC) and adjustment of mA and kV were utilized.FINDINGS:No pneumothorax or effusion. No acute airspace disease. Scattered peripheral ground-glass opacities in the lungs, likely reflecting scarring and/or atelectasis.The heart is normal in size. No evidence of pericardial disease. Coronary and aortic calcifications. No mediastinal adenopathy. Moderate hiatal hernia. Bilateral breast implants.Left 6th and 7th rib fractures. Right 2-6 rib fractures. Multilevel degenerative changes in the visualized spine.The limited visualized portions of the upper abdomen demonstrate no acute process. Prior cholecystectomy.IMPRESSION:Left 6th and 7th rib fractures. Right 2-6 rib fractures.THIS IS AN ELECTRONICALLY VERIFIED FINAL REPORT08/27/2023 12:22 PM - Electronically signed by Arnie Huang MD
[2023-08-27] MEDS: ZOFRAN INJ 4 MG VIAL IVP ONE (13:19)
[2023-08-27] MEDS: DEMEROL INJ IVP ONE (13:21)
[2023-08-27] MEDS ORDERED: DEMEROL INJ IVP PRN (14:03)
[2023-08-27 16:13] LABS: FREE T4 (FREE THYROXINE) 0.85 ng/dL (0.76-1.46); MAGNESIUM 1.4 mg/dL (2.0-2.9); TSH (3RD GENERATION) 8.875 uIU/mL (0.358-3.74)
[2023-08-27 16:33] LABS: IRON 13 ug/dL (50-175); TOTAL IRON BINDING CAPACITY 461 ug/dL (250-450)
[2023-08-27] MEDS: FERROUS GLUCONATE PO SCH (16:40)
[2023-08-27] MEDS: NS 250 ML IV 250 ML IV ONE (16:45)
[2023-08-27] MEDS: LIBRIUM PO SCH (18:32)
[2023-08-27] MEDS: PROTONIX INJ 40 MG VIAL IVP SCH (19:08)
[2023-08-27] MEDS: THIAMINE HCL INJ IV SCH (19:09)
[2023-08-27] MEDS: CRESTOR TAB 10 MG PO SCH (20:42)
[2023-08-27] MEDS: LOPRESSOR TAB 25 MG PO SCH (20:43)
[2023-08-27] MEDS: PERCOCET TAB 5/325 MG PO PRN (20:43)
[2023-08-27] MEDS ORDERED: PROTONIX TAB 40 MG PO SCH (21:00)
[2023-08-27] MEDS: TIRZEPATIDE 5 MG/0.5 ML SUBCUT SCH (21:23)
[2023-08-27] MEDS: ZOFRAN INJ 4 MG VIAL IVP PRN (21:44)
[2023-08-27] MEDS: RESTORIL CAP 15 MG PO PRN (23:40)
[2023-08-28] MEDS: DEMEROL INJ ONE (00:17)
[2023-08-28] MEDS: ZOFRAN INJ 4 MG VIAL ONE (00:18)
[2023-08-28] MEDS: NS 1,000 ML IV 1,000 ML with MAGNESIUM SULFATE 50% INJ VIAL 1 G, MVI INJ (ADULT) 10 ML IV ONE (01:59)
[2023-08-28 03:06] LABS: BASOPHILS % (AUTO) 0.5 % (0.2-1.0); EOSINOPHILS # (AUTO) 0.1 x10^3/uL (0.0-0.2); EOSINOPHILS % (AUTO) 0.9 % (0.9-2.9); HEMATOCRIT 25.6 % (36.0-47.0); HEMOGLOBIN 7.9 g/dL (12.0-16.0); LYMPHOCYTES # (AUTO) 1.2 X10^3/uL (1.3-2.9); MEAN CORPUSCULAR HEMOGLOBIN 19.6 pg (27.0-34.0); MEAN CORPUSCULAR HGB CONC 30.7 g/dL (33.0-35.0); MEAN CORPUSCULAR VOLUME 63.8 fL (80.0-100.0); MEAN PLATELET VOLUME 8.4 fL (7.4-11.0); MONOCYTES # (AUTO) 0.9 x10^3/uL (0.3-0.8); MONOCYTES % (AUTO) 11.5 % (0.0-13.0); NEUTROPHILS # (AUTO) 5.5 x10^3/uL (2.2-4.8); NEUTROPHILS % (AUTO) 71.1 % (42.0-75.0); PLATELET COUNT 160 X10^3/uL (150.0-450.0); RED BLOOD COUNT 4.01 X10^6/uL (3.5-5.4); RED CELL DISTRIBUTION WIDTH 26.7 % (11.6-16.5); WHITE BLOOD COUNT 7.8 X10^3/uL (3.6-10.0)
[2023-08-28 03:14] LABS: ALANINE AMINOTRANSFERASE 24 Units/L (12-78); ALBUMIN 2.7 g/dL (3.4-5.0); ALKALINE PHOSPHATASE 100 Units/L (46-116); ASPARTATE AMINO TRANSFERASE 21 Units/L (15-37); BLOOD UREA NITROGEN 18 mg/dL (7-18); CALCIUM 8.5 mg/dL (8.5-10.1); CARBON DIOXIDE 27.6 mmol/L (21-32); CHLORIDE 105 mmol/L (98-107); COR CA(FOR HYPOALB) 9.5 mg/dL (8.5-10.1); CREATININE 1.39 mg/dL (0.55-1.02); GLUCOSE 105 mg/dL (65-99); POTASSIUM 3.6 mmol/L (3.5-5.1); SODIUM 140 mmol/L (136-145); TOTAL PROTEIN 6.4 g/dL (6.4-8.2); eGFR NON BLACK RACES 41 (>60)
[2023-08-28 03:28] LABS: ANISOCYTOSIS 3+; HYPOCHROMASIA 3+; MICROCYTOSIS 2+; OVALOCYTES PRESENT; PLATELET MORPHOLOGY COMMENT NORMAL (NORMAL)
[2023-08-28] MEDS: DILAUDID INJ IVP PRN (04:44)
[2023-08-28] MEDS: TORADOL 30 MG VIAL IVP ONE (07:32)
[2023-08-28] MEDS ORDERED: ZOLOFT ONE (08:26)
[2023-08-28] MEDS: NORVASC TAB 5 MG PO SCH (08:51)
[2023-08-28] MEDS: PEPCID TAB 20 MG PO SCH (08:51)
[2023-08-28] MEDS: WELLBUTRIN XL 300 MG (DAILY) PO SCH (08:51)
[2023-08-28] MEDS: ZOLOFT PO SCH (08:51)
[2023-08-28] MEDS: SYNTHROID 75 mcg TAB PO SCH (08:51)
[2023-08-28] MEDS: NS 1,000 ML IV 1,000 ML IV SCH (08:52)
[2023-08-28] MEDS: LURASIDONE 40 MG PO SCH (08:52)
--- NOTE | 2023-08-28 09:11 | DR.H&P ---
H&P History & Physical for Day of: H&P Date: 08/27/23 Chief Complaint Chief Complaint: FALL, LEFT RIB/SIDE PAIN, DIZZY Allergies Allergies Allergy/AdvReac Type Severity Reaction Status Date / Time Sulfa (Sulfonamide Allergy Verified 08/27/23 10:38 Antibiotics) History of Present Illness History of Present Illness: PT IS 57 WF, ER ADMISSION WITH CO FALL LAST PM WITH INTRACTABLE LEFT SIDE, FLANK PAIN AND DIZZINESS. PT HAS PMH OF ANEMIA AND FAMILY REPORTS SHE GETS WEAK AND HAS INCREASED DIZZINESS WHEN HER IRON IS LOW. PT HAD CT IN ER REVEALING MULTIPLE LEFT RIB FRACTURES. PLAN TO ADMIT FOR TREATMENT AND EVALUATION OF ACUTE ILLNESS. Past Medical History Past Medical History: Anxiety, Dyslipidemia, Hypertension and Hypothyroidism Additional Medical History: heart murmur Past Surgical History Surgical History: Cholecystectomy and Hysterectomy Family History Family Medical History: Diabetes Mellitus, CO, Coronary Artery Disease and Hypertension Social History Type of Tobacco Use: None Does any household member use tobacco: No Alcohol Use: DAILY Drug Use: None Medications Home Medications: Home Medications Medication Instructions Recorded Confirmed Type amlodipine 5 mg tablet 5 mg PO DAILY 10/03/20 08/27/23 History bupropion HCl 300 mg 24 hr tablet, 300 mg PO DAILY 10/03/20 08/27/23 History extended release ergocalciferol (vitamin D2) 1,250 1 mcg PO 2XW 10/03/20 08/27/23 History mcg (50,000 unit) capsule (Vitamin D2) levothyroxine 75 mcg tablet 75 mcg PO DAILY 10/03/20 08/27/23 History metoprolol tartrate 25 mg tablet 25 mg PO BID 10/03/20 08/27/23 History rosuvastatin 5 mg tablet 5 mg PO HS 10/03/20 08/27/23 History sertraline 100 mg tablet 100 mg PO DAILY 10/03/20 08/27/23 History lurasidone 40 mg tablet 40 mg PO QDAY 08/27/23 08/27/23 History pantoprazole 40 mg tablet,delayed 40 mg PO BID 08/27/23 08/27/23 History release temazepam 30 mg capsule 30 mg PO QPM PRN 08/27/23 08/27/23 History tirzepatide 5 mg/0.5 mL 5 mg subcut DAILY 08/27/23 08/27/23 History subcutaneous pen injector (Mounjaro) Labs 08/28/23 02:47 08/28/23 02:47 Labs: Laboratory WBC 7.8 X10^3/uL (3.6-10.0) 08/28/23 02:47 RBC 4.01 X10^6/uL (3.5-5.4) 08/28/23 02:47 Hgb 7.9 g/dL (12.0-16.0) L 08/28/23 02:47 Hct 25.6 % (36.0-47.0) L 08/28/23 02:47 MCV 63.8 fL (80.0-100.0) L 08/28/23 02:47 MCH 19.6 pg (27.0-34.0) L 08/28/23 02:47 MCHC 30.7 g/dL (33.0-35.0) L 08/28/23 02:47 RDW 26.7 % (11.6-16.5) H 08/28/23 02:47 Plt Count 160 X10^3/uL (150.0-450.0) 08/28/23 02:47 Plt Count Comment Adequate (ADEQUATE) 08/28/23 02:47 MPV 8.4 fL (7.4-11.0) 08/28/23 02:47 Neut % (Auto) 71.1 % (42.0-75.0) 08/28/23 02:47 Lymph % (Auto) 16.0 % (21.0-51.0) L 08/28/23 02:47 [place] % (Auto) 11.5 % (0.0-13.0) 08/28/23 02:47 Eos % (Auto) 0.9 % (0.9-2.9) 08/28/23 02:47 Baso % (Auto) 0.5 % (0.2-1.0) 08/28/23 02:47 Neut # (Auto) 5.5 x10^3/uL (2.2-4.8) H 08/28/23 02:47 Lymph # (Auto) 1.2 X10^3/uL (1.3-2.9) L 08/28/23 02:47 [place] # (Auto) 0.9 x10^3/uL (0.3-0.8) H 08/28/23 02:47 Eos # (Auto) 0.1 x10^3/uL (0.0-0.2) 08/28/23 02:47 Baso # (Auto) 0.0 X10^3/uL (0.0-0.1) 08/28/23 02:47 Absolute Nucleated RBC 0.3 /100WBC 08/28/23 02:47 Plt Morphology Comment Normal (NORMAL) 08/28/23 02:47 RBC Morphology Abnormal (NORMAL) A 08/28/23 02:47 Dimorphic RBCs Present 08/28/23 02:47 Hypochromasia 3+ A 08/28/23 02:47 Anisocytosis 3+ A 08/28/23 02:47 Microcytosis 2+ A 08/28/23 02:47 Ovalocytes Present 08/28/23 02:47 Sodium 140 mmol/L (136-145) 08/28/23 02:47 Corrected Sodium TNP 08/28/23 02:47 Potassium 3.6 mmol/L (3.5-5.1) 08/28/23 02:47 Chloride 105 mmol/L (98-107) 08/28/23 02:47 Carbon Dioxide 27.6 mmol/L (21-32) 08/28/23 02:47 BUN 18 mg/dL (7-18) 08/28/23 02:47 Creatinine 1.39 mg/dL (0.55-1.02) H 08/28/23 02:47 Est GFR (MDRD) Af Amer 50 (>60) L 08/28/23 02:47 Est GFR (MDRD) Non-Af 41 (>60) L 08/28/23 02:47 Glucose 105 mg/dL (65-99) H 08/28/23 02:47 Calcium 8.5 mg/dL (8.5-10.1) 08/28/23 02:47 Corrected Calcium 9.5 mg/dL (8.5-10.1) 08/28/23 02:47 Magnesium 1.4 mg/dL (2.0-2.9) L 08/27/23 11:30 Iron 13 ug/dL (50-175) L 08/27/23 11:30 TIBC 461 ug/dL (250-450) H 08/27/23 11:30 Transferrin 361 mg/dL (202-364) 08/27/23 11:30 Ferritin 7 ng/mL (8-252) L 08/27/23 11:30 Total Bilirubin 0.90 mg/dL (0.2-1.0) 08/28/23 02:47 AST 21 Units/L (15-37) 08/28/23 02:47 ALT 24 Units/L (12-78) 08/28/23 02:47 Alkaline Phosphatase 100 Units/L (46-116) 08/28/23 02:47 Total Protein 6.4 g/dL (6.4-8.2) 08/28/23 02:47 Albumin 2.7 g/dL (3.4-5.0) L 08/28/23 02:47 Globulin 3.7 g/dL (2.5-4.5) 08/28/23 02:47 Albumin/Globulin Ratio 0.7 Ratio (1.1-2.1) L 08/28/23 02:47 Amylase 57 Units/L (25-115) 08/27/23 11:30 Lipase 93 Units/L (16-77) H 08/27/23 11:30 Vitamin B12 531 pg/mL (193-986) 08/27/23 11:30 Folate 4.0 ng/mL (>8.6) L 08/27/23 11:30 Free T4 0.85 ng/dL (0.76-1.46) 08/27/23 11:30 TSH 3rd Generation 8.875 uIU/mL (0.358-3.74) H 08/27/23 11:30 Ethyl Alcohol mg/dL 0 mg/dL (0-19.9) 08/27/23 11:30 Blood Type B POSITIVE 08/27/23 14:18 Antibody Screen Negative 08/27/23 14:18 Crossmatch See Detail 08/27/23 14:18 Review of Systems Constitutional: Weakness Eyes: No Symptoms Reported ENT: No Symptoms Reported Respiratory: Shortness of Breath Cardiovascular: Edema Gastrointestinal: Nausea Genitourinary: No Symptoms Reported Musculoskeletal: Back Pain and Other (LEFT RIB PAIN) Skin: Bruising Neurological: Other (DIZZINESS ON STANDING) Physical Exam Vital Signs: Vital Signs Temperature 97.7 F Pulse Rate [Right Brachial] 62 Respiratory Rate 18 Respiratory Rate 18 Respiratory Rate 18 Blood Pressure [Right Arm] 117/75 O2 Sat by Pulse Oximetry 98 Oriented: Normal Eyes: Normal Ear: Normal Nose: Normal Throat: Dry Respiratory: RLL Diminished and LLL Diminished Cardiovascular: Edema : Normal Auscultation: Bowel Sounds: Normal Palpation: Normal Tenderness: Epigastric and Mild Skin: Decreased Turgur Musculoskeletal: Left (LATERAL RIB PAIN, ANTERIOR RIB PAIN), Back:Thoracic and Back:Lumbar Psychiatric: Normal Mood Description: Calm Affect: Flat Speech Pattern: Clear and Appropriate Assessment/Plan (1) Anemia: Narrative Support Text: ADMIT, ANEMIA PANEL ON ADMISSION TRANSFUSE 2 UNITS PRBC PROTONIX BID, OCCULT STOOL GENTLE IV HYDRATION, I&OS BP MONITORING, IRON REPLACEMENT THERAPY PAIN CONTROL, IS THERAPY Status: Acute (2) Ribs, multiple fractures: Status: Acute (3) DENEEN (iron deficiency anemia): Qualifiers: Iron deficiency anemia type: unspecified iron deficiency Qualified Code(s): D50.9 - Iron deficiency anemia, unspecified Status: Acute (4) Symptomatic anemia: Status: Acute (5) HTN (hypertension): Qualifiers: Hypertension type: essential hypertension Qualified Code(s): I10 - Essential (primary) hypertension Status: Acute (6) GERD with esophagitis: Status: Acute
[2023-08-28] MEDS: REGLAN INJ 10 MG VIAL IVP ONE (12:50)
[2023-08-28 12:54] LABS: HEMOGLOBIN 8.6 g/dL (12.0-16.0); WHITE BLOOD COUNT 6.3 X10^3/uL (3.6-10.0)
[2023-08-28 12:57] LABS: BASOPHILS % (AUTO) 0.7 % (0.2-1.0); EOSINOPHILS # (AUTO) 0.1 x10^3/uL (0.0-0.2); EOSINOPHILS % (AUTO) 1.5 % (0.9-2.9); HEMATOCRIT 27.9 % (36.0-47.0); LYMPHOCYTES % (AUTO) 16.2 % (21.0-51.0); MEAN CORPUSCULAR HEMOGLOBIN 19.8 pg (27.0-34.0); MEAN CORPUSCULAR HGB CONC 30.9 g/dL (33.0-35.0); MEAN CORPUSCULAR VOLUME 64.2 fL (80.0-100.0); MEAN PLATELET VOLUME 8.3 fL (7.4-11.0); MONOCYTES # (AUTO) 0.6 x10^3/uL (0.3-0.8); MONOCYTES % (AUTO) 10.1 % (0.0-13.0); NEUTROPHILS # (AUTO) 4.5 x10^3/uL (2.2-4.8); NEUTROPHILS % (AUTO) 71.5 % (42.0-75.0); PLATELET COUNT 162 X10^3/uL (150.0-450.0); RED BLOOD COUNT 4.34 X10^6/uL (3.5-5.4); RED CELL DISTRIBUTION WIDTH 26.7 % (11.6-16.5)
[2023-08-28 13:31] LABS: ANISOCYTOSIS 3+; MICROCYTOSIS 2+
[2023-08-28 13:44] LABS: PLATELET MORPHOLOGY COMMENT NORMAL (NORMAL)
[2023-08-28] MEDS: DILAUDID INJ ONE (16:34)
[2023-08-28] MEDS: DIPRIVAN VIAL 20 ML ONE (16:43)
[2023-08-29 05:24] LABS: BASOPHILS % (AUTO) 0.5 % (0.2-1.0); EOSINOPHILS # (AUTO) 0.1 x10^3/uL (0.0-0.2); HEMATOCRIT 25.8 % (36.0-47.0); HEMOGLOBIN 7.8 g/dL (12.0-16.0); LYMPHOCYTES # (AUTO) 1.2 X10^3/uL (1.3-2.9); LYMPHOCYTES % (AUTO) 16.4 % (21.0-51.0); MEAN CORPUSCULAR HEMOGLOBIN 19.4 pg (27.0-34.0); MEAN CORPUSCULAR HGB CONC 30.1 g/dL (33.0-35.0); MEAN CORPUSCULAR VOLUME 64.5 fL (80.0-100.0); MEAN PLATELET VOLUME 8.5 fL (7.4-11.0); MONOCYTES # (AUTO) 0.7 x10^3/uL (0.3-0.8); MONOCYTES % (AUTO) 9.4 % (0.0-13.0); NEUTROPHILS % (AUTO) 71.7 % (42.0-75.0); PLATELET COUNT 169 X10^3/uL (150.0-450.0); RED BLOOD COUNT 4.01 X10^6/uL (3.5-5.4); RED CELL DISTRIBUTION WIDTH 26.8 % (11.6-16.5)
[2023-08-29 05:42] LABS: ALANINE AMINOTRANSFERASE 138 Units/L (12-78); ALBUMIN 2.5 g/dL (3.4-5.0); ALKALINE PHOSPHATASE 226 Units/L (46-116); ASPARTATE AMINO TRANSFERASE 205 Units/L (15-37); BLOOD UREA NITROGEN 16 mg/dL (7-18); CALCIUM 8.6 mg/dL (8.5-10.1); CARBON DIOXIDE 27.6 mmol/L (21-32); CHLORIDE 106 mmol/L (98-107); COR CA(FOR HYPOALB) 9.8 mg/dL (8.5-10.1); CREATININE 1.42 mg/dL (0.55-1.02); GLUCOSE 89 mg/dL (65-99); MAGNESIUM 1.7 mg/dL (2.0-2.9); POTASSIUM 3.8 mmol/L (3.5-5.1); SODIUM 142 mmol/L (136-145); TOTAL PROTEIN 6.2 g/dL (6.4-8.2); eGFR NON BLACK RACES 40 (>60)
[2023-08-29 05:59] LABS: ANISOCYTOSIS 3+; HYPOCHROMASIA 3+; MICROCYTOSIS 2+; PLATELET MORPHOLOGY COMMENT NORMAL (NORMAL)
[2023-08-29 06:00] LABS: OVALOCYTES PRESENT
[2023-08-29] MEDS ORDERED: ZOLOFT ONE (08:10)
[2023-08-29] MEDS: MAG-OX TAB PO SCH (08:32)
[2023-08-29] MEDS: KLOR-CON PO SCH (08:33)
[2023-08-29] MEDS: CONSULT PHARMACY - POTASSIUM & MAGNESIUM XX SCH (10:00)
--- NOTE | 2023-08-29 14:55 | CT ---
EXAM:ABDOMEN/PELVIS W/O CONHISTORY:hx trauma, right upper quadrant abdominal distention, elevated liver function tests;COMPARISON:CT of the chest August 27, 2023TECHNIQUE:CT of the abdomen and pelvis without contrastFINDINGS:Bilateral breast implants are partially visible and appear symmetric. Sensitivity is reduced without intravenous contrast. There are nonspecific mild bilateral airspace infiltrates present.There is a moderate-sized hiatal hernia present. The abdominal aorta tapers normally with multifocal atherosclerotic plaque. No perihepatic collection. Clips from prior cholecystectomy. Normal adrenal glands. Nonobstructed kidneys. Normal tapering ureters.Normal spleen contours. Pancreas is noninflamed. Nonobstructed stomach.Scattered colon diverticulosis. Scattered air-fluid levels in the right colon. No pelvic free fluid. No free air or bowel wall thickening. Compression deformities of vertebral bodies T10 and T12 are age indeterminate but similar to the recent comparison CT study August 27, 2023 without retropulsion.IMPRESSION:Bibasilar airspace infiltrates suggesting combination of atelectasis and pneumonia.Moderate hiatal hernia.Colon diverticulosis without CT evidence of complication.Scattered air-fluid levels in the right colon suggests enteritis or possibly diarrheal illness.No acute traumatic findings in the abdomen or pelvis.Dose reduction techniques including automated exposure control (AEC) and adjustment of mA and kv were utilized.THIS IS AN ELECTRONICALLY VERIFIED FINAL REPORT08/29/2023 2:52 PM - Electronically signed by Toni Santana MD
[2023-08-29 15:56] LABS: HEMATOCRIT 27.8 % (36.0-47.0); HEMOGLOBIN 8.4 g/dL (12.0-16.0)
[2023-08-29] MEDS: INJECTAFER 750 MG in NS 250 ML IV 250 ML IV NR (16:01)
[2023-08-29] MEDS: FOLIC ACID TAB 1 MG PO SCH (16:01)
[2023-08-30 05:27] LABS: BASOPHILS # (AUTO) 0.1 X10^3/uL (0.0-0.1); BASOPHILS % (AUTO) 0.9 % (0.2-1.0); EOSINOPHILS # (AUTO) 0.2 x10^3/uL (0.0-0.2); EOSINOPHILS % (AUTO) 2.4 % (0.9-2.9); HEMATOCRIT 26.6 % (36.0-47.0); LYMPHOCYTES # (AUTO) 1.3 X10^3/uL (1.3-2.9); LYMPHOCYTES % (AUTO) 15.3 % (21.0-51.0); MEAN CORPUSCULAR HEMOGLOBIN 19.6 pg (27.0-34.0); MEAN CORPUSCULAR HGB CONC 30.1 g/dL (33.0-35.0); MEAN PLATELET VOLUME 8.3 fL (7.4-11.0); NEUTROPHILS # (AUTO) 6.2 x10^3/uL (2.2-4.8); NEUTROPHILS % (AUTO) 70.4 % (42.0-75.0); PLATELET COUNT 211 X10^3/uL (150.0-450.0); RED CELL DISTRIBUTION WIDTH 27.4 % (11.6-16.5); WHITE BLOOD COUNT 8.8 X10^3/uL (3.6-10.0)
[2023-08-30 05:42] LABS: ALANINE AMINOTRANSFERASE 129 Units/L (12-78); ALBUMIN 2.6 g/dL (3.4-5.0); ALKALINE PHOSPHATASE 228 Units/L (46-116); BLOOD UREA NITROGEN 14 mg/dL (7-18); CALCIUM 8.9 mg/dL (8.5-10.1); CARBON DIOXIDE 26.9 mmol/L (21-32); CHLORIDE 106 mmol/L (98-107); CREATININE 1.32 mg/dL (0.55-1.02); GLUCOSE 97 mg/dL (65-99); MAGNESIUM 1.7 mg/dL (2.0-2.9); POTASSIUM 3.5 mmol/L (3.5-5.1); SODIUM 141 mmol/L (136-145); TOTAL PROTEIN 6.6 g/dL (6.4-8.2); eGFR NON BLACK RACES 44 (>60)
[2023-08-30 06:30] LABS: ANISOCYTOSIS 3+; HYPOCHROMASIA 3+; MICROCYTOSIS 1+; OVALOCYTES SLIGHT; PLATELET MORPHOLOGY COMMENT NORMAL (NORMAL); POIKILOCYTOSIS 1+
[2023-08-30 06:55] LABS: ASPARTATE AMINO TRANSFERASE 91 Units/L (15-37)
[2023-08-30] MEDS ORDERED: ZOLOFT ONE (08:32)
[2023-08-30 08:48] VITALS: RESP 16
[2023-08-30] MEDS: DUONEB 0.5 MG/3 MG (3 mL) NEB SCH (08:53)
[2023-08-30] MEDS ORDERED: CONSULT PHARMACY - POTASSIUM & MAGNESIUM XX SCH (09:00)
[2023-08-30 09:46] VITALS: O2SAT 92
[2023-08-30] MEDS: NS + KCL 20 MEQ/L 1,000 ML with MAGNESIUM SULFATE 50% INJ VIAL 2 G IV SCH (10:54)
[2023-08-30 11:54] VITALS: BP 154/63; PULSE 69; TEMP 97.5
--- NOTE | 2023-09-01 10:36 | W.DIS.FURT ---
Summary of Discharge Discharge Summary of Date Date of Exam: 08/30/23 Admission Date Date of Admission: 08/27/23 Admission Diagnosis Patient Problems (Updated 08/30/23 @ 10:48 by Gris Arellano) Anemia (Acute) D64.9 Ribs, multiple fractures (Acute) S22.49XA Hospital Course: Ms Marr is a 57y/o female with a PMH of anemia, gastritis, HTN, HLD, GERD and DM was admitted for symptomatic anemia. Hgb was 6.7 on admission and she was transfused 2 units PRBCs. She was started on IV PPI and hydration. Dr Marquez perfomed EGD which showed gastric polyps, no bleeding. Her labs were monitored daily, electrolytes replaced as needed. She was having abdominal pain, CTAP showed enteritis. She was started on IV antibiotics. Her hgb remained stable, 8.0 prior to discharge. She will continue with PPI, carafate and iron supplements. She will f/u with GI and PCP outpatient. Patient was stable for discharge. She was discharged on PO antibiotics. Vital Signs: Vital Signs (72 hours) 08/27/23 13:21 08/27/23 14:04 08/27/23 14:18 Temperature Pulse Rate Pulse Rate [Right Brachial] Respiratory Rate 20 20 Blood Pressure [Right Arm] O2 Sat by Pulse Oximetry Oxygen Delivery Method Room Air Oxygen Flow Rate FIO2% 08/27/23 16:21 08/27/23 14:30 08/27/23 16:00 Temperature 98.2 F 99.0 F Pulse Rate Pulse Rate [Right Brachial] 67 76 Respiratory Rate 18 18 Blood Pressure [Right Arm] 137/66 131/81 O2 Sat by Pulse Oximetry 100 97 Oxygen Delivery Method Nasal Cannula Room Air Room Air Oxygen Flow Rate 2 FIO2% 28 08/27/23 19:00 08/27/23 20:00 08/27/23 20:36 Temperature 98.6 F Pulse Rate Pulse Rate [Right Brachial] 64 Respiratory Rate 18 Blood Pressure [Right Arm] 138/60 O2 Sat by Pulse Oximetry 100 Oxygen Delivery Method Nasal Cannula Room Air Nasal Cannula Oxygen Flow Rate 2 2 FIO2% 28 08/27/23 20:43 08/28/23 00:00 08/27/23 21:43 Temperature 98.2 F Pulse Rate Pulse Rate [Right Brachial] 63 Respiratory Rate 22 20 20 Blood Pressure [Right Arm] 124/81 O2 Sat by Pulse Oximetry 99 Oxygen Delivery Method Room Air Oxygen Flow Rate FIO2% 08/28/23 04:44 08/28/23 04:00 08/28/23 05:14 Temperature 97.7 F Pulse Rate Pulse Rate [Right Brachial] 62 Respiratory Rate 18 18 18 Blood Pressure [Right Arm] 117/75 O2 Sat by Pulse Oximetry 98 Oxygen Delivery Method Room Air Oxygen Flow Rate FIO2% 08/28/23 08:54 08/28/23 08:00 08/28/23 07:00 Temperature 98 F Pulse Rate Pulse Rate [Right Brachial] 65 Respiratory Rate 18 19 Blood Pressure [Right Arm] 114/60 O2 Sat by Pulse Oximetry 98 Oxygen Delivery Method Room Air Nasal Cannula Oxygen Flow Rate 2 FIO2% 08/28/23 09:54 08/28/23 12:00 08/28/23 16:00 Temperature 97.6 F 97.3 F L Pulse Rate Pulse Rate [Right Brachial] 72 66 Respiratory Rate 18 18 17 Blood Pressure [Right Arm] 103/64 133/77 O2 Sat by Pulse Oximetry 98 99 Oxygen Delivery Method Room Air Room Air Oxygen Flow Rate FIO2% 08/28/23 16:34 08/28/23 17:04 08/28/23 17:00 Temperature 97.6 F Pulse Rate Pulse Rate [Right Brachial] 65 Respiratory Rate 18 18 17 Blood Pressure [Right Arm] 118/68 O2 Sat by Pulse Oximetry 99 Oxygen Delivery Method Room Air Oxygen Flow Rate FIO2% 08/28/23 17:30 08/28/23 19:00 08/28/23 19:50 Temperature 97.6 F 98.2 F Pulse Rate Pulse Rate [Right Brachial] 68 65 Respiratory Rate 17 18 Blood Pressure [Right Arm] 130/75 125/75 O2 Sat by Pulse Oximetry 99 96 Oxygen Delivery Method Room Air Nasal Cannula Room Air Oxygen Flow Rate 2 FIO2% 08/28/23 20:03 08/28/23 19:55 08/28/23 19:55 Temperature Pulse Rate 74 Pulse Rate [Right Brachial] Respiratory Rate 18 Blood Pressure [Right Arm] O2 Sat by Pulse Oximetry 99 Oxygen Delivery Method Nasal Cannula Oxygen Flow Rate 2 FIO2% 28 08/28/23 21:03 08/28/23 23:55 08/29/23 03:17 Temperature 97.6 F Pulse Rate Pulse Rate [Right Brachial] 67 Respiratory Rate 20 20 18 Blood Pressure [Right Arm] 117/74 O2 Sat by Pulse Oximetry 92 L Oxygen Delivery Method Room Air Oxygen Flow Rate FIO2% 08/29/23 04:00 08/29/23 04:17 08/29/23 07:00 Temperature 98 F Pulse Rate Pulse Rate [Right Brachial] 70 Respiratory Rate 20 18 Blood Pressure [Right Arm] 137/82 O2 Sat by Pulse Oximetry 93 L Oxygen Delivery Method Room Air Nasal Cannula Oxygen Flow Rate 2 FIO2% 08/29/23 07:44 08/29/23 08:43 08/29/23 09:43 Temperature 97.1 F L Pulse Rate Pulse Rate [Right Brachial] 77 Respiratory Rate 18 18 18 Blood Pressure [Right Arm] 132/82 O2 Sat by Pulse Oximetry 95 Oxygen Delivery Method Room Air Oxygen Flow Rate FIO2% 08/29/23 11:53 08/29/23 16:00 08/29/23 17:41 Temperature 97.6 F 97.7 F Pulse Rate Pulse Rate [Right Brachial] 70 71 Respiratory Rate 18 17 18 Blood Pressure [Right Arm] 133/61 124/78 O2 Sat by Pulse Oximetry 93 L 93 L Oxygen Delivery Method Room Air Room Air Oxygen Flow Rate FIO2% 08/29/23 18:41 08/29/23 19:00 08/29/23 19:48 Temperature 98.2 F Pulse Rate Pulse Rate [Right Brachial] 75 Respiratory Rate 18 20 Blood Pressure [Right Arm] 125/61 O2 Sat by Pulse Oximetry 92 L Oxygen Delivery Method Room Air Room Air Oxygen Flow Rate FIO2% 08/29/23 20:51 08/29/23 21:59 08/29/23 22:59 Temperature Pulse Rate Pulse Rate [Right Brachial] Respiratory Rate 20 17 Blood Pressure [Right Arm] O2 Sat by Pulse Oximetry Oxygen Delivery Method Nasal Cannula Oxygen Flow Rate 2 FIO2% 28 08/29/23 23:43 08/30/23 04:50 08/30/23 04:00 Temperature 98.2 F 97.8 F Pulse Rate Pulse Rate [Right Brachial] 73 74 Respiratory Rate 20 20 20 Blood Pressure [Right Arm] 129/82 146/76 O2 Sat by Pulse Oximetry 93 L 97 Oxygen Delivery Method Room Air Room Air Oxygen Flow Rate FIO2% 08/30/23 05:50 08/30/23 08:47 08/30/23 08:52 Temperature Pulse Rate Pulse Rate [Right Brachial] Respiratory Rate 19 16 Blood Pressure [Right Arm] O2 Sat by Pulse Oximetry Oxygen Delivery Method Room Air Oxygen Flow Rate FIO2% 08/30/23 08:53 08/30/23 08:53 Temperature Pulse Rate 62 Pulse Rate [Right Brachial] Respiratory Rate Blood Pressure [Right Arm] O2 Sat by Pulse Oximetry 92 L Oxygen Delivery Method Room Air Oxygen Flow Rate 2 FIO2% 28 Labs: Laboratory Last Values WBC 8.8 X10^3/uL (3.6-10.0) 08/30/23 04:49 RBC 4.10 X10^6/uL (3.5-5.4) 08/30/23 04:49 Hgb 8.0 g/dL (12.0-16.0) L 08/30/23 04:49 Hct 26.6 % (36.0-47.0) L 08/30/23 04:49 MCV 65.0 fL (80.0-100.0) L 08/30/23 04:49 MCH 19.6 pg (27.0-34.0) L 08/30/23 04:49 MCHC 30.1 g/dL (33.0-35.0) L 08/30/23 04:49 RDW 27.4 % (11.6-16.5) H 08/30/23 04:49 Plt Count 211 X10^3/uL (150.0-450.0) 08/30/23 04:49 Plt Count Comment Adequate (ADEQUATE) 08/30/23 04:49 MPV 8.3 fL (7.4-11.0) 08/30/23 04:49 Neut % (Auto) 70.4 % (42.0-75.0) 08/30/23 04:49 Lymph % (Auto) 15.3 % (21.0-51.0) L 08/30/23 04:49 [place] % (Auto) 11.0 % (0.0-13.0) 08/30/23 04:49 Eos % (Auto) 2.4 % (0.9-2.9) 08/30/23 04:49 Baso % (Auto) 0.9 % (0.2-1.0) 08/30/23 04:49 Neut # (Auto) 6.2 x10^3/uL (2.2-4.8) H 08/30/23 04:49 Lymph # (Auto) 1.3 X10^3/uL (1.3-2.9) 08/30/23 04:49 [place] # (Auto) 1.0 x10^3/uL (0.3-0.8) H 08/30/23 04:49 Eos # (Auto) 0.2 x10^3/uL (0.0-0.2) 08/30/23 04:49 Baso # (Auto) 0.1 X10^3/uL (0.0-0.1) 08/30/23 04:49 Absolute Nucleated RBC 0.2 /100WBC 08/30/23 04:49 Plt Morphology Comment Normal (NORMAL) 08/30/23 04:49 RBC Morphology Abnormal (NORMAL) A 08/30/23 04:49 Dimorphic RBCs Present 08/30/23 04:49 Hypochromasia 3+ A 08/30/23 04:49 Poikilocytosis 1+ A 08/30/23 04:49 Anisocytosis 3+ A 08/30/23 04:49 Microcytosis 1+ A 08/30/23 04:49 Ovalocytes Slight A 08/30/23 04:49 Sodium 141 mmol/L (136-145) 08/30/23 04:49 Corrected Sodium TNP 08/30/23 04:49 Potassium 3.5 mmol/L (3.5-5.1) 08/30/23 04:49 Chloride 106 mmol/L (98-107) 08/30/23 04:49 Carbon Dioxide 26.9 mmol/L (21-32) 08/30/23 04:49 BUN 14 mg/dL (7-18) 08/30/23 04:49 Creatinine 1.32 mg/dL (0.55-1.02) H 08/30/23 04:49 Est GFR (MDRD) Af Amer 53 (>60) L 08/30/23 04:49 Est GFR (MDRD) Non-Af 44 (>60) L 08/30/23 04:49 Glucose 97 mg/dL (65-99) 08/30/23 04:49 Calcium 8.9 mg/dL (8.5-10.1) 08/30/23 04:49 Corrected Calcium 10.0 mg/dL (8.5-10.1) 08/30/23 04:49 Magnesium 1.7 mg/dL (2.0-2.9) L 08/30/23 04:49 Iron 13 ug/dL (50-175) L 08/27/23 11:30 TIBC 461 ug/dL (250-450) H 08/27/23 11:30 Transferrin 361 mg/dL (202-364) 08/27/23 11:30 Ferritin 7 ng/mL (8-252) L 08/27/23 11:30 Total Bilirubin 0.30 mg/dL (0.2-1.0) 08/30/23 04:49 AST 91 Units/L (15-37) H 08/30/23 04:49 ALT 129 Units/L (12-78) H 08/30/23 04:49 Alkaline Phosphatase 228 Units/L (46-116) H 08/30/23 04:49 Total Protein 6.6 g/dL (6.4-8.2) 08/30/23 04:49 Albumin 2.6 g/dL (3.4-5.0) L 08/30/23 04:49 Globulin 4.0 g/dL (2.5-4.5) 08/30/23 04:49 Albumin/Globulin Ratio 0.7 Ratio (1.1-2.1) L 08/30/23 04:49 Amylase 57 Units/L (25-115) 08/27/23 11:30 Lipase 93 Units/L (16-77) H 08/27/23 11:30 Vitamin B12 531 pg/mL (193-986) 08/27/23 11:30 Folate 4.0 ng/mL (>8.6) L 08/27/23 11:30 Free T4 0.85 ng/dL (0.76-1.46) 08/27/23 11:30 TSH 3rd Generation 8.875 uIU/mL (0.358-3.74) H 08/27/23 11:30 Stl Occult Blood (IFOB) Negative (NEGATIVE) 08/29/23 08:45 Ethyl Alcohol mg/dL 0 mg/dL (0-19.9) 08/27/23 11:30 Blood Type B POSITIVE 08/27/23 14:18 Antibody Screen Negative 08/27/23 14:18 Crossmatch See Detail 08/27/23 14:18 Reason For Visit: ANEMIA, MULTIPLE RIB FRACTURES Discharge Diagnosis All Active Problems (Updated 08/30/23 @ 10:48 by Gris Arellano) Enteritis (Acute) GERD with esophagitis (Acute) Anemia (Acute) Ribs, multiple fractures (Acute) H/O ETOH abuse (Acute) Esophagitis (Acute) HLD (hyperlipidemia) (Acute) Hypothyroidism (Acute) HTN (hypertension) (Acute) Acute kidney injury (Acute) Transaminitis (Acute) GI bleed (Acute) Symptomatic anemia (Acute) DENEEN (iron deficiency anemia) (Acute) Anemia (Acute) Depression (Chronic) Plan of Treatment: Continue with present treatment and follow up plan. Pt is to keep follow up appointment as instructed and take medications as ordered. Discharge Medications Discharge Medications: Sulfa (Sulfonamide Antibiotics) Allergy (Verified 08/27/23 10:38) CONTINUE taking the following medications lurasidone 40 mg tablet 40 mg PO QDAY 08/27/23 [History] pantoprazole 40 mg tablet,delayed release 40 mg PO BID 08/27/23 [History] temazepam 30 mg capsule 30 mg PO QPM PRN 08/27/23 [History] tirzepatide 5 mg/0.5 mL subcutaneous pen injector (Mounjaro) 5 mg subcut DAILY 08/27/23 [History] New Prescriptions ciprofloxacin HCl 500 mg tablet 500 mg PO BID 7 days #14 tabs 08/30/23 [Rx] metronidazole 500 mg tablet 500 mg PO TID 7 days #21 tabs 08/30/23 [Rx] Discharge Disposition Assessment: No distress noted. Discharge Plan Discharge Plan Hospital Course: Ms Marr is a 57y/o female with a PMH of anemia, gastritis, HTN, HLD, GERD and DM was admitted for symptomatic anemia. Hgb was 6.7 on admission and she was transfused 2 units PRBCs. She was started on IV PPI and hydration. Dr Marquez perfomed EGD which showed gastric polyps, no bleeding. Her labs were monitored daily, electrolytes replaced as needed. She was having abdominal pain, CTAP showed enteritis. She was started on IV antibiotics. Her hgb remained stable, 8.0 prior to discharge. She will continue with PPI, carafate and iron supplements. She will f/u with GI and PCP outpatient. Patient was stable for discharge. She was discharged on PO antibiotics. Patient Disposition: 01 HOME, SELF-CARE Condition: Stable Health Concerns: Post Hospitalization: new medications and changes needed to prevent readmission or further decline. Pt educated and given instructions on all concerns. Care Plan Goals: Problem: Activity Intolerance Goal: Increased tolerance to activity Instructions: Follow provided instructions. Follow up with primary physician as directed. Contact primary care physician or report to the closest Emergency Room if condition worsens. Plan of Treatment: Continue with present treatment and follow up plan. Pt is to keep follow up appointment as instructed and take medications as ordered. Assessment: No distress noted. Prescriptions: New ciprofloxacin HCl 500 mg tablet 500 mg PO BID 7 Days Qty: 14 0RF metronidazole 500 mg tablet 500 mg PO TID 7 Days Qty: 21 0RF Continued sertraline 100 mg tablet 100 mg PO DAILY amlodipine 5 mg Tablet 5 mg PO DAILY levothyroxine 75 mcg tablet 75 mcg PO DAILY ergocalciferol (vitamin D2) [Vitamin D2] 1,250 mcg (50,000 unit) capsule 1 mcg PO 2XW Rx Instructions: Take one capsule by mouth biweekly rosuvastatin 5 mg tablet 5 mg PO HS bupropion HCl 300 mg tablet extended release 24 hr 300 mg PO DAILY metoprolol tartrate 25 mg tablet 25 mg PO BID ferrous gluconate 324 mg (38 mg iron) Tablet 324 mg PO BIDWM 30 Days Qty: 60 1RF famotidine 20 mg tablet 20 mg PO BID 30 Days Qty: 60 1RF temazepam 30 mg capsule 30 mg PO QPM PRN pantoprazole 40 mg tablet,delayed release (DR/EC) 40 mg PO BID lurasidone 40 mg tablet 40 mg PO QDAY Mounjaro 5 mg/0.5 mL pen injector 5 mg SUBCUT DAILY Patient Comments: [NO ORIGINAL SIG] Follow ups/Referrals Follow ups/Referrals: Trevin Kong [Primary Care Provider] - 09/01/23 12:10 pm (Please collect repeat labs at follow up appointment.) Instructions Instructions: Esophagitis, Anemia, Gastrointestinal Bleeding, [id number], Rib Fracture, [id number] Activity Restrictions/Additional Instructions: no nsaids, needs colonoscopy rest, increase po fluid intake, h20 continue home medications ISO, fu with pcp in 3-5 days continue iron replacement therapy will need repeat cbc, cmp in 3-5 days Stand Alone Forms: Post Hospital Follow Up Care
== END 2023-08-30 12:01 | disposition home or self-care (01) | DRG 812 ==
LOC: MED/SURG 10:37 → ER 10:37 → OBSVTOIN 13:57 → MED/SURG 14:19
PROVIDERS: ADMIT Internal Medicine; ATTEND Internal Medicine
DX: R42 Dizziness and giddiness; D50.8 Other iron deficiency anemias; S22.43XA Multiple fractures of ribs, bilateral, initial encounter for closed fracture; K21.00 Gastro-esophageal reflux disease with esophagitis, without bleeding; K52.89 Other specified noninfective gastroenteritis and colitis; E83.42 Hypomagnesemia; I10 Essential (primary) hypertension; W18.39XA Other fall on same level, initial encounter